=== PATIENT | female | born 1965 | race Caucasian/White ===

== ENCOUNTER 2018-06-10 16:11 | Inpatient (IN) | payer BC, OTHER ==
--- NOTE | 2018-06-10 16:21 | PDOC ---
Rapid Medical Evaluation Time Seen by Provider: 06/10/18 16:20 Medical Evaluation: Allergies Allergy/AdvReac Type Severity Reaction Status Date / Time No Known Allergies Allergy Verified 04/08/15 18:54 06/10/18 16:20 I have performed a brief in-person evaluation of this patient. The patient presents with a chief complaint of: Body pain w/ malaise and subj fever x 3 days. H/o HTN Pertinent physical exam findings:Febrile and gabriel uncomfortable I have ordered the following:tylenol, flu The patient will proceed to the ED for further evaluation. Discharge Disposition - Diagnosis Viral syndrome - Referrals - Patient Instructions - Post Discharge Activity
[2018-06-10] MEDS ORDERED: ACETAMINOPHEN 325 MG TABLET (FP) PO ONE (16:23)
[2018-06-10 17:03] LABS: BASO % 0.3 % (0-2.0); HEMOGLOBIN 12.1 GM/dL (10.7-15.3); LYMPH % 3.8 % (8-40); MCH 26.4 pg (25.7-33.7); MCHC 33.7 g/dl (32.0-36.0); MEAN CELL VOLUME 78.3 fl (80-96); MONO % 5.2 % (3.8-10.2); NEUT % 90.7 % (42.8-82.8); PLATELET COUNT 239 K/MM3 (134-434); RBC 4.59 M/mm3 (3.60-5.2); RDW 13.9 % (11.6-15.6); WHITE BLOOD COUNT 17.4 K/mm3 (4.0-10.0)
[2018-06-10 17:33] LABS: ALK PHOS 202 U/L (45-117); ANION GAP 12 MMOL/L (8-16); BILIRUBIN,TOTAL 1.1 mg/dL (0.2-1.0); BLOOD UREA NITROGEN 7 mg/dL (7-18); CALCIUM 8.6 mg/dL (8.5-10.1); CHLORIDE 102 mmol/L (98-107); CO2 24 mmol/L (21-32); GLUCOSE,RANDOM 126 mg/dL (74-106); POTASSIUM 3.5 mmol/L (3.5-5.1); SGOT/AST 93 U/L (15-37); SGPT/ALT 91 U/L (13-61); SODIUM 138 mmol/L (136-145); TOT PROT 6.8 g/dl (6.4-8.2)
[2018-06-10 17:56] LABS: URINE APPEARANCE SLCLOUDY; URINE BILIRUBIN NEGATIVE (<2.0 mg/dL); URINE COLOR LTYELLOW; URINE GLUCOSE (UA) NEGATIVE (NEGATIVE); URINE KETONE NEGATIVE (NEGATIVE); URINE NITRITE NEGATIVE (NEGATIVE); URINE PROTEIN NEGATIVE (NEGATIVE); URINE UROBILINOGEN NEGATIVE mg/dL (0.2-1.0)
[2018-06-10 17:57] LABS: URINE LEUK ESTERASE 3+ (NEGATIVE)
[2018-06-10 18:08] LABS: EPI CELLS RARE /HPF (FEW); URINE BACTERIA RARE /hpf (NONE SEEN)
[2018-06-10] MEDS ORDERED: SODIUM CHLORIDE 0.9% 1000 ML INFUS.BAG IV STA (18:16)
[2018-06-10] MEDS ORDERED: CEFTRIAXONE 1,000 MG in DEXTROSE 5%-WATER - 50 ML IVPB ONE (18:18)
--- NOTE | 2018-06-10 18:24 | PDOC ---
History of Present Illness - General History Source: Patient Exam Limitations: No Limitations - History of Present Illness Initial Comments: 06/10/18 18:20 Patient is a 52F with no significant medical history here today complaining of fever and dysuria for the past day. Patient reports associated left sided flank pain. Endorses nausea, denies vomiting. Endorses suprapubic abdominal pain. Denies chest pain, shortness of breath. Surgical history of . No prior admissions for UTIs. <Vahe Foster - Last Filed: 06/10/18 19:03> <Dotty Bardales - Last Filed: 06/10/18 19:17> - General Chief Complaint: SIRS, Suspected/Possible Stated Complaint: PAIN Time Seen by Provider: 06/10/18 16:20 Past History - Past Medical History COPD: No - Suicide/Smoking/Psychosocial Hx Smoking History: Never smoked Hx Alcohol Use: No Substance Use Type: None <Vahe Foster - Last Filed: 06/10/18 19:03> <Dotty Bardales - Last Filed: 06/10/18 19:17> - Past Medical History Allergies/Adverse Reactions: Allergies Allergy/AdvReac Type Severity Reaction Status Date / Time No Known Allergies Allergy Verified 06/10/18 16:26 Home Medications: Ambulatory Orders Acetaminophen/Caffeine/Butalb [Fioricet -] 1 tab PO Q6H #28 tablet 04/08/15 Review of Systems - Review of Systems Comments:: 06/10/18 18:21 GENERAL/CONSTITUTIONAL:+fever +chills. No weakness. HEAD, EYES, EARS, NOSE AND THROAT: No change in vision. No sore throat. CARDIOVASCULAR: No chest pain or shortness of breath RESPIRATORY: No cough, wheezing, or hemoptysis. GASTROINTESTINAL: No nausea, vomiting, diarrhea or constipation. GENITOURINARY: +dysuria, +frequency MUSCULOSKELETAL: No joint or muscle swelling or pain. No neck pain, +flank pain SKIN: No rash NEUROLOGIC: No headache, vertigo, loss of consciousness, or change in strength/ sensation. ENDOCRINE: No increased thirst. No abnormal weight change HEMATOLOGIC/LYMPHATIC: No anemia, easy bleeding, or history of blood clots. ALLERGIC/IMMUNOLOGIC: No hives or skin allergy. <Vahe Foster - Last Filed: 06/10/18 19:03> *Physical Exam - Vital Signs Last Vital Signs Temp Pulse Resp BP Pulse Ox 101.1 F H 122 H 20 125/69 99 06/10/18 16:26 06/10/18 16:26 06/10/18 16:26 06/10/18 16:26 06/10/18 16:26 - Physical Exam Comments: 06/10/18 18:22 GENERAL: Awake, alert, and fully oriented, in no acute distress HEAD: No signs of trauma, normocephalic, atraumatic EYES: PERRLA, EOMI, sclera anicteric, conjunctiva clear ENT: Auricles normal inspection, hearing grossly normal, nares patent, oropharynx clear without exudates. Moist mucosa NECK: Normal ROM, supple, no lymphadenopathy, JVD, or masses LUNGS: No distress, speaks full sentences, clear to auscultation bilaterally HEART: Regular rate and rhythm, normal S1 and S2, no murmurs, rubs or gallops, peripheral pulses normal and equal bilaterally. ABDOMEN: Soft, +suprapubic pain, +cva left sided tenderness, normoactive bowel sounds. No guarding, no rebound. No masses EXTREMITIES: Normal inspection, Normal range of motion, no edema. No clubbing or cyanosis. NEUROLOGICAL: Cranial nerves II through XII grossly intact. Normal speech, no focal sensorimotor deficits SKIN: Warm, Dry, normal turgor, no rashes or lesions noted. <Vahe Foster - Last Filed: 06/10/18 19:03> - Vital Signs Last Vital Signs Temp Pulse Resp BP Pulse Ox 101.1 F H 122 H 20 125/69 99 06/10/18 16:26 06/10/18 16:26 06/10/18 16:26 06/10/18 16:26 06/10/18 16:26 <Dotty Bardales - Last Filed: 06/10/18 19:17> ED Treatment Course - LABORATORY CBC & Chemistry Diagram: 06/10/18 16:44 06/10/18 16:44 - ADDITIONAL ORDERS Additional order review: Laboratory Results 06/10/18 06/10/18 06/10/18 16:44 16:44 16:40 Sodium 138 Potassium 3.5 Chloride 102 Carbon Dioxide 24 Anion Gap 12 BUN 7 Creatinine 1.0 Random Glucose 126 H Lactic Acid 1.2 Calcium 8.6 Total Bilirubin 1.1 H AST 93 H ALT 91 H Alkaline Phosphatase 202 H Total Protein 6.8 Albumin 3.0 L Urine Color Ltyellow Urine Appearance Slcloudy Urine pH 6.0 Ur Specific [place] 1.002 Urine Protein Negative Urine Glucose (UA) Negative Urine Ketones Negative Urine Blood 2+ H Urine Nitrite Negative Urine Bilirubin Negative Urine Urobilinogen Negative Ur Leukocyte Esterase 3+ H Urine WBC (Auto) 138 Urine RBC (Auto) 1 Ur Epithelial Cells Rare Urine Bacteria Rare 06/10/18 16:25 Influenza Types A,B Antigen - Final Nasopharyngeal Swab - Final 06/10/18 16:44 RBC 4.59 MCV 78.3 L MCHC 33.7 RDW 13.9 D MPV 8.0 Neutrophils % 90.7 H Lymphocytes % 3.8 L D Monocytes % 5.2 Eosinophils % 0.0 D Basophils % 0.3 - Medications Given in the ED: ED Medications Discontinued Medications Generic Name Dose Route Start Last Admin Trade Name Freq PRN Reason Stop Dose Admin Acetaminophen 650 mg 06/10/18 16:23 06/10/18 16:31 Tylenol - PO 06/10/18 16:24 650 mg ONCE ONE Administration <Vahe Foster - Last Filed: 06/10/18 19:03> - LABORATORY CBC & Chemistry Diagram: 06/10/18 16:44 06/10/18 16:44 - ADDITIONAL ORDERS Additional order review: Laboratory Results 06/10/18 06/10/18 06/10/18 16:44 16:44 16:40 Sodium 138 Potassium 3.5 Chloride 102 Carbon Dioxide 24 Anion Gap 12 BUN 7 Creatinine 1.0 Creat Clearance w eGFR 58.45 Random Glucose 126 H Lactic Acid 1.2 Calcium 8.6 Total Bilirubin 1.1 H AST 93 H ALT 91 H Alkaline Phosphatase 202 H Total Protein 6.8 Albumin 3.0 L Urine Color Ltyellow Urine Appearance Slcloudy Urine pH 6.0 Ur Specific [place] 1.002 Urine Protein Negative Urine Glucose (UA) Negative Urine Ketones Negative Urine Blood 2+ H Urine Nitrite Negative Urine Bilirubin Negative Urine Urobilinogen Negative Ur Leukocyte Esterase 3+ H Urine WBC (Auto) 138 Urine RBC (Auto) 1 Ur Epithelial Cells Rare Urine Bacteria Rare 06/10/18 16:25 Influenza Types A,B Antigen - Final Nasopharyngeal Swab - Final 06/10/18 16:44 RBC 4.59 MCV 78.3 L MCHC 33.7 RDW 13.9 D MPV 8.0 Neutrophils % 90.7 H Lymphocytes % 3.8 L D Monocytes % 5.2 Eosinophils % 0.0 D Basophils % 0.3 - Medications Given in the ED: ED Medications Discontinued Medications Generic Name Dose Route Start Last Admin Trade Name Puja PRN Reason Stop Dose Admin Acetaminophen 650 mg 06/10/18 16:23 06/10/18 16:31 Tylenol - PO 06/10/18 16:24 650 mg ONCE ONE Administration <Dotty Bardales - Last Filed: 06/10/18 19:17> Medical Decision Making - Medical Decision Making 06/10/18 18:23 Patient is 52F with no significant medical history here today with pyelonephritis. Labs drawn in triage show UTI with leukocytosis. Lactate negative. Started on ceftriaxone. Given 30cc/kg bolus. CXR clear. Hospitalist paged. 06/10/18 19:[address] Lamar Ford. <Vahe Foster - Last Filed: 06/10/18 19:03> *DC/Admit/Observation/Transfer - Discharge Dispostion Decision to Admit order: Yes <Vahe Foster - Last Filed: 06/10/18 19:03> - Discharge Dispostion Decision to Admit order: Yes Decision to Admit order Date/Time: 06/10/18 19:15 Decision to Admit Order Category Date Time Status Decision to Admit to Hospital Routine Admission 06/10/18 19:16 Ordered 06/10/18 19:17 <Dotty Bardales - Last Filed: 06/10/18 19:17> Diagnosis at time of Disposition: Sepsis, Pyelonephritis - Discharge Dispostion Condition at time of disposition: Guarded
[2018-06-10] MEDS ORDERED: IBUPROFEN 600 MG TABLET (FP) PO ONE ×2 (18:42→19:42)
--- NOTE | 2018-06-10 18:44 | PDOC ---
Attending Attestation - Resident Resident Name: Vahe Foster - ED Attending Attestation I have performed the following: I have examined & evaluated the patient, The case was reviewed & discussed with the resident, I agree w/resident's findings & plan - HPI HPI: 06/10/18 18:55 52 YOF, with no significant past medical history, who presents to the emergency department with, 1 day of fever and dysuria. The patient also endorses suprapubic pain radiating to the bilateral flank and nausea without emesis. She denies recent diarrhea or constipation. She denies recent frequency, urgency or hematuria. She denies recent chest pain or shortness of breath. Allergies: NKA Past surgical history: . - Physicial Exam PE: 06/10/18 18:55 uncomfortably /malaised appearing, MMM, nl conjunctiva, anicteric; neck supple. lungs clear, +tachy. abdomen soft. Suprapubic tenderness. Bilateral flank tenderness. WANG x4, no focal neuro deficits. No peripheral edema. normal color for ethnicity, +Warm to touch. - Medical Decision Making 06/10/18 18:55 52 YOF with no medical history presenting with fever and dysuria worsening with flank pain x 1 day. vitals +tachycardia and fever DDx. pyelonephritis, UTI, sepsis, dehydration, electrolyte/metabolic derangements. labs and lytes remarkable for significant leukocytosis 17K, neutrophilic predominance. LFTs elevated mildly UA +UTI with copious WBCs, f/u urine cx. blood cx pending IVF, sepsis bolus, treat with ceftriaxone for UTI. antipyretics including nsaid/ tylenol for fever and pain control admit for acute pyelonephritis with clinical syndrome, admit to hospitalist service. 06/10/18 19:17
--- NOTE | 2018-06-10 19:08 | HP ---
CHIEF COMPLAINT: Fever HISTORY OF PRESENT ILLNESS: Patient is a 52 yo F with a PMHx of HTN, HLD, presented today because of fever and LUQ abdominal pain that started last night. Patient also feels burning when urinating, dysuria, and increased urinary frequency that started 1 week ago. She describes the LUQ pain and suprapubic abdominal pain as a constant, 10/10 pain. Patient also endorses nausea, but has not vomited. She has no history of kidney stones or UTI. Her LMP was 1 week ago. She says her periods are usually normal and last 8 days. She denies sob, blood in urine, chest pain, dizziness, diarrhea, edema, cough, weight changes. ER course was notable for: (1) WBC 17, Tachy 122, 101.1 Temp (2) U/A 3+ LE, 2+ blood. 138 wbc (3) Ceftriaxone Recent Travel: none PAST MEDICAL HISTORY: per hpi PAST SURGICAL HISTORY: tubal ligation 2001, 2001 Social History: Smoking: denies Alcohol:denies Drugs: denies Family History: Allergies No Known Allergies Allergy (Verified 06/10/18 16:26) HOME MEDICATIONS: Home Medications Medication Instructions Recorded Acetaminophen/Caffeine/Butalb 1 tab PO Q6H #28 tablet 04/08/15 [Fioricet -] REVIEW OF SYSTEMS CONSTITUTIONAL: fevers, chills, weakeness Absent: malaise, loss of appetite, weight change HEENT: Absent: rhinorrhea, nasal congestion, throat pain, throat swelling, difficulty swallowing, mouth swelling, ear pain, eye pain, visual changes CARDIOVASCULAR: Absent: chest pain, syncope, palpitations, irregular heart rate, lightheadedness , peripheral edema RESPIRATORY: Absent: cough, shortness of breath, dyspnea with exertion, orthopnea, wheezing, stridor, hemoptysis GASTROINTESTINAL: abdominal pain, nausea Absent: abdominal distension, vomiting, diarrhea, constipation, melena, hematochezia GENITOURINARY: dysuria, frequency, flank pain Absent: hesitancy, hematuria, genital pain MUSCULOSKELETAL: back pain Absent: myalgia, arthralgia, joint swelling, neck pain ENDOCRINE: Absent: unexplained weight gain, unexplained weight loss, heat intolerance, cold intolerance NEUROLOGIC: Absent: headache, focal weakness or paresthesias, dizziness, unsteady gait, seizure, mental status changes, bladder or bowel incontinence PHYSICAL EXAMINATION Vital Signs - 24 hr 06/10/18 16:26 Temperature 101.1 F H Pulse Rate 122 H Respiratory 20 Rate Blood Pressure 125/69 O2 Sat by Pulse 99 Oximetry (%) GENERAL: in mild distress HEAD: Normal with no signs of trauma. EYES: Pupils equal, round and reactive to light, extraocular movements intact EARS, NOSE, THROAT: oropharynx clear without exudates. Moist mucous membranes. NECK: supple without lymphadenopathy, JVD, or masses. LUNGS: Breath sounds equal, clear to auscultation bilaterally. HEART: tachy, regular rhythm ABDOMEN:+ BS, LUQ tenderness to palpation, suprapubic tenderness, L CVA tenderness MUSCULOSKELETAL: Normal range of motion at all joints. No bony deformities or tenderness. UPPER EXTREMITIES: 2+ pulses, warm LOWER EXTREMITIES: 2+ pulses. No peripheral edema. NEUROLOGICAL: Cranial nerves II-XII intact. Normal speech. Laboratory Results - last 24 hr 06/10/18 06/10/18 06/10/18 16:40 16:44 16:44 WBC 17.4 H RBC 4.59 Hgb 12.1 Hct 36.0 MCV 78.3 L MCH 26.4 MCHC 33.7 RDW 13.9 D Plt Count 239 MPV 8.0 Absolute Neuts (auto) 15.8 H Neutrophils % 90.7 H Lymphocytes % 3.8 L D Monocytes % 5.2 Eosinophils % 0.0 D Basophils % 0.3 Nucleated RBC % 0 Sodium 138 Potassium 3.5 Chloride 102 Carbon Dioxide 24 Anion Gap 12 BUN 7 Creatinine 1.0 Creat Clearance w eGFR 58.45 Random Glucose 126 H Lactic Acid Calcium 8.6 Total Bilirubin 1.1 H AST 93 H ALT 91 H Alkaline Phosphatase 202 H Total Protein 6.8 Albumin 3.0 L Urine Color Ltyellow Urine Appearance Slcloudy Urine pH 6.0 Ur Specific [place] 1.002 Urine Protein Negative Urine Glucose (UA) Negative Urine Ketones Negative Urine Blood 2+ H Urine Nitrite Negative Urine Bilirubin Negative Urine Urobilinogen Negative Ur Leukocyte Esterase 3+ H Urine WBC (Auto) 138 Urine RBC (Auto) 1 Ur Epithelial Cells Rare Urine Bacteria Rare 06/10/18 16:44 WBC RBC Hgb Hct MCV MCH MCHC RDW Plt Count MPV Absolute Neuts (auto) Neutrophils % Lymphocytes % Monocytes % Eosinophils % Basophils % Nucleated RBC % Sodium Potassium Chloride Carbon Dioxide Anion Gap BUN Creatinine Creat Clearance w eGFR Random Glucose Lactic Acid 1.2 Calcium Total Bilirubin AST ALT Alkaline Phosphatase Total Protein Albumin Urine Color Urine Appearance Urine pH Ur Specific [place] Urine Protein Urine Glucose (UA) Urine Ketones Urine Blood Urine Nitrite Urine Bilirubin Urine Urobilinogen Ur Leukocyte Esterase Urine WBC (Auto) Urine RBC (Auto) Ur Epithelial Cells Urine Bacteria ASSESSMENT/PLAN: 52 yo F with a PMHx of HTN, HLD, presented because of fever and LUQ abdominal pain. #Sepsis 2/2 to Pyelonephritis -WBC 17, Tachy 122, 101.1 Temp -ucx, bcx pending -U/A 3+ LE, 2+ blood. 138 wbc -IV abx: ceftriaxone -NS @ 100ml/hour -Cxr unremarkable -morphine 2mg q6h prn -tylenol 650mg q6h prn #HTN/HLD -cont. Enalopril 5mg -cont. Lipitor 10 #FEN -iv fluids ns @100 -monitor -sodium controlled #dvt -lovenox med-surge Visit type - Emergency Visit Emergency Visit: Yes ED Registration Date: 06/10/18 Care time: The patient presented to the Emergency Department on the above date and was hospitalized for further evaluation of their emergent condition. - New Patient This patient is new to me today: Yes Date on this admission: 06/15/18 - Critical Care Critical Care patient: No Hospitalist Screening - Colonoscopy Questionnaire Colonoscopy Questionnaire: Colonoscopy Questionnaire - Patient: 50 - 75 years old and never had a screening colonoscopy: Unknown History of colon or rectal polyps, or CA: Unknown History of IBD, Crohn's disease or UC: Unknown History of abdominal radiation therapy as a child: Unknown - Relative: 1 with colon or rectal CA, or polyps at age 60 or younger: Unknown Colon or rectal CA diagnosed at age 45 or younger: Unknown Multiple relatives with colon or rectal CA: Unknown - Outcome: Screening Result: Negative Screen
[2018-06-10] MEDS ORDERED: ACETAMINOPHEN 325 MG TABLET (FP) PO PRN (19:30)
[2018-06-10] MEDS ORDERED: ACETAMINOPHEN INJECTION 100 ML IVPB ONE (19:35)
[2018-06-10] MEDS ORDERED: CEFTRIAXONE 1 GM/50 ML BAG ONE (19:36)
--- NOTE | 2018-06-10 19:58 | PN ---
Teaching Attending Note Name of Resident: Lamar Ford ATTENDING PHYSICIAN STATEMENT I saw and evaluated the patient. I reviewed the resident's note and discussed the case with the resident. I agree with the resident's findings and plan as documented. SUBJECTIVE: Patient is a 52 year old woman with a PMH of HTN, HLD, who presented today because of fever and LUQ abdominal pain that started last night. Patient also feels burning when urinating, dysuria, and increased urinary frequency that started 1 week ago. She describes the LUQ pain and suprapubic abdominal pain as a constant, 10/10 pain. Patient also endorses nausea, but has not vomited. She has no history of kidney stones or UTI. Her LMP was 1 week ago. She says her periods are usually normal and last 8 days. She denies sob, blood in urine, or diarrhea. OBJECTIVE: Alert Vital Signs Period Temp Pulse Resp BP Sys/Ryan Pulse Ox Last 24 Hr 101.1 F 122 20 125/69 99 HEENT: No Jaundice, eye redness or discharge, PERRLA, EOMI. Normocephalic, atraumatic. External ears are normal and hearing is grossly intact. No nasal discharge. Neck: Supple, nontender. No palpable adenopathy or thyromegaly. No JVD Chest: Good effort. Clear to auscultation and percussion. Heart: Regular. No S3, rub or murmur Abdomen: Not distended, soft, suprapubic tenderness and left CVAT; no HSM. No rebound or guarding. Normoactive bowel sounds. Ext: Peripheral pulses intact. No leg edema. Skin: Warm and dry. No petechiae, rash or ecchymosis. Neuro: Alert. Oriented x3. CN 2-12 grossly intact. Sensation grossly intact in all four extremities and DTR are symmetric. Current Medications Generic Name Dose Route Start Last Admin Trade Name Freq PRN Reason Stop Dose Admin Acetaminophen 650 mg 06/10/18 19:30 Tylenol - PO Q6H PRN FEVER Enoxaparin Sodium 40 mg 06/11/18 10:00 Lovenox - SQ DAILY CONCHA Sodium Chloride 1,000 mls @ 100 mls/hr 06/10/18 19:15 Normal Saline - IV ASDIR CONCHA Ceftriaxone Sodium 1 gm/ 50 mls @ 100 mls/hr 06/11/18 10:00 Dextrose IVPB DAILY [facility] Morphine Sulfate 2 mg 06/10/18 19:04 Morphine Sulfate IVPUSH Q6H PRN PAIN LEVEL 6-10 Home Medications Medication Instructions Recorded Acetaminophen/Caffeine/Butalb 1 tab PO Q6H #28 tablet 04/08/15 [Fioricet -] Abnormal Lab Results 06/10/18 06/10/18 06/10/18 16:40 16:44 16:44 WBC 17.4 H MCV 78.3 L Absolute Neuts (auto) 15.8 H Neutrophils % 90.7 H Lymphocytes % 3.8 L D Random Glucose 126 H Total Bilirubin 1.1 H AST 93 H ALT 91 H Alkaline Phosphatase 202 H Albumin 3.0 L Urine Blood 2+ H Ur Leukocyte Esterase 3+ H ASSESSMENT AND PLAN: 1. Sepsis due to pyelonephritis - Continue Rocephin 1 gm IV q 24 hours and IV NS. IV morphine for pain control. 2. DVT prophylaxis - Lovenox 40 mg SQ q 24 hours. 3. Advance directives - Full code
[2018-06-10 20:38] LABS: VENOUS PH 7.43 (7.32-7.42)
[2018-06-10 20:39] LABS: VENOUS PC02 36.7 mmHg (38-52)
[2018-06-10] MEDS ORDERED: ENALAPRIL MALEATE 5 MG TABLET (FP) ONE (21:52)
[2018-06-10] MEDS ORDERED: ATORVASTATIN CA 10 MG TABLET (FP) ONE (21:52)
[2018-06-10] MEDS ORDERED: ATORVASTATIN CA 10 MG TABLET (FP) PO SCH (22:00)
[2018-06-10] MEDS: ENALAPRIL MALEATE 5 MG TABLET (FP) PO SCH (22:04)
[2018-06-10] MEDS: SODIUM CHLORIDE 1,000 ML IV SCH (22:35)
[2018-06-11] MEDS: MORPHINE SULFATE 2 MG/ML VIAL IVPUSH PRN ×2 (04:54→11:58)
[2018-06-11] MEDS ORDERED: ONDANSETRON 4 MG/2 ML VIAL IVPUSH ONE (06:31)
[2018-06-11 07:09] LABS: HEMATOCRIT 35.5 % (32.4-45.2); HEMOGLOBIN 11.6 GM/dL (10.7-15.3); MCH 26.1 pg (25.7-33.7); MCHC 32.8 g/dl (32.0-36.0); MEAN CELL VOLUME 79.6 fl (80-96); MEAN PLT VOLUME 8.5 fl (7.5-11.1); PLATELET COUNT 196 K/MM3 (134-434); RBC 4.46 M/mm3 (3.60-5.2); RDW 14.2 % (11.6-15.6); WHITE BLOOD COUNT 17.3 K/mm3 (4.0-10.0)
[2018-06-11 08:18] LABS: ALBUMIN 2.5 g/dl (3.4-5.0); ALK PHOS 199 U/L (45-117); ANION GAP 11 MMOL/L (8-16); BILIRUBIN,TOTAL 1.2 mg/dL (0.2-1.0); BLOOD UREA NITROGEN 9 mg/dL (7-18); CALCIUM 8.1 mg/dL (8.5-10.1); CHLORIDE 108 mmol/L (98-107); CO2 24 mmol/L (21-32); CREATININE 0.8 mg/dL (0.55-1.3); GLUCOSE,RANDOM 123 mg/dL (74-106); MAGNESIUM 1.9 mg/dL (1.8-2.4); PHOSPHOROUS 2.8 mg/dL (2.5-4.9); POTASSIUM 4.3 mmol/L (3.5-5.1); SGOT/AST 74 U/L (15-37); SGPT/ALT 77 U/L (13-61); SODIUM 143 mmol/L (136-145)
--- NOTE | 2018-06-11 09:01 | PN ---
Physical Exam: SUBJECTIVE: Patient seen and examined Patient is c/o having upper abdominal pain. feels nausea with vomiting. Gabonese speaking patient. OBJECTIVE: Vital Signs Temperature 98.4 F 06/11/18 06:00 Pulse Rate 91 H 06/11/18 06:00 Respiratory Rate 16 06/11/18 06:00 Blood Pressure 132/82 06/11/18 06:00 O2 Sat by Pulse Oximetry (%) 97 06/11/18 00:45 GENERAL: The patient is awake, alert, and fully oriented, in mild distress. HEAD: Normal with no signs of trauma. EYES: PERRL, extraocular movements intact, sclera anicteric, conjunctiva clear. ENT: Ears normal, oropharynx clear without exudates, moist mucous membranes. NECK: Trachea midline, full range of motion, supple. LUNGS: Breath sounds equal, clear to auscultation bilaterally, no wheezes, no crackles, no accessory muscle use. HEART: Regular rate and rhythm, S1, S2 without murmur, rub or gallop. ABDOMEN: Soft, RUQ positive for Noe's sign with mild abdominal tenderness. no rebound, no hepatosplenomegaly, no masses. EXTREMITIES: 2+ pulses, warm, well-perfused, no edema. NEUROLOGICAL: Cranial nerves II through XII grossly intact. Normal speech, gait not observed. PSYCH: Normal mood, normal affect. SKIN: Warm, dry, normal turgor, no rashes or lesions noted CBCD WBC 17.3 K/mm3 (4.0-10.0) H 06/11/18 06:10 RBC 4.46 M/mm3 (3.60-5.2) 06/11/18 06:10 Hgb 11.6 GM/dL (10.7-15.3) 06/11/18 06:10 Hct 35.5 % (32.4-45.2) 06/11/18 06:10 MCV 79.6 fl (80-96) L 06/11/18 06:10 MCHC 32.8 g/dl (32.0-36.0) 06/11/18 06:10 RDW 14.2 % (11.6-15.6) 06/11/18 06:10 Plt Count 196 K/MM3 (134-434) 06/11/18 06:10 MPV 8.5 fl (7.5-11.1) 06/11/18 06:10 CMP Sodium 143 mmol/L (136-145) 06/11/18 06:10 Potassium 4.3 mmol/L (3.5-5.1) 06/11/18 06:10 Chloride 108 mmol/L (98-107) H 06/11/18 06:10 Carbon Dioxide 24 mmol/L (21-32) 06/11/18 06:10 Anion Gap 11 MMOL/L (8-16) 06/11/18 06:10 BUN 9 mg/dL (7-18) 06/11/18 06:10 Creatinine 0.8 mg/dL (0.55-1.3) 06/11/18 06:10 Creat Clearance w eGFR > 60 (>60) 06/11/18 06:10 Random Glucose 123 mg/dL (74-106) H 06/11/18 06:10 Calcium 8.1 mg/dL (8.5-10.1) L 06/11/18 06:10 Total Bilirubin 1.2 mg/dL (0.2-1.0) H 06/11/18 06:10 AST 74 U/L (15-37) H 06/11/18 06:10 ALT 77 U/L (13-61) H 06/11/18 06:10 Alkaline Phosphatase 199 U/L (45-117) H 06/11/18 06:10 Total Protein 6.0 g/dl (6.4-8.2) L 06/11/18 06:10 Albumin 2.5 g/dl (3.4-5.0) L 06/11/18 06:10 Current Medications Generic Name Dose Route Start Last Admin Trade Name Freq PRN Reason Stop Dose Admin Acetaminophen 650 mg 06/10/18 19:30 Tylenol - PO Q6H PRN FEVER Atorvastatin Calcium 10 mg 06/10/18 22:00 06/10/18 22:04 Lipitor - PO 10 mg HS CONCHA Administration Enalapril Maleate 5 mg 06/10/18 20:15 06/10/18 22:04 Vasotec - PO 5 mg DAILY CONCHA Administration Enoxaparin Sodium 40 mg 06/11/18 10:00 Lovenox - SQ DAILY [facility] Sodium Chloride 1,000 mls @ 100 mls/hr 06/10/18 19:15 06/10/18 22:35 Normal Saline - IV 100 mls/hr ASDIR CONCHA Administration Ceftriaxone Sodium 1 gm/ 50 mls @ 100 mls/hr 06/11/18 10:00 Dextrose IVPB DAILY [facility] Morphine Sulfate 2 mg 06/10/18 19:04 06/11/18 04:54 Morphine Sulfate IVPUSH 2 mg Q6H PRN Administration PAIN LEVEL 6-10 Home Medications Medication Instructions Recorded Enalapril Maleate 5 mg PO HS 06/10/18 Simvastatin [Zocor] 10 mg PO HS 06/10/18 A/P: 52 yo F with a PMHx of HTN, HLD, presented because of fever and RUQ and LUQ abdominal pain . # Sepsis due to possible cholecystitis/choledecolithiasis , will switch antibiotics to IV Flagyl/Levaquin, Discussed with surgeon will see the patient in am # ELevated LFTs will monitor trend the level # Acute UTI antibiotic on board Levquin Dvt:lovenox advance directives - Full code Visit type - Emergency Visit Emergency Visit: Yes ED Registration Date: 06/10/18 Care time: The patient presented to the Emergency Department on the above date and was hospitalized for further evaluation of their emergent condition. - New Patient This patient is new to me today: Yes Date on this admission: 06/11/18 - Critical Care Critical Care patient: Yes Total Critical Care Time (in minutes): 35 Critical Care Statement: The care of this patient involved high complexity decision making to prevent further life threatening deterioration of the patient 's condition and/or to evaluate & treat vital organ system(s) failure or risk of failure. - Discharge Referral Referred to [facility] No
[2018-06-11] MEDS ORDERED: CEFTRIAXONE 1 GM in DEXTROSE 5%-WATER - 50 ML IVPB SCH (10:00)
[2018-06-11] MEDS ORDERED: DEXTROSE 5%-WATER - 50 ML IVPB ONE (10:21)
[2018-06-11] MEDS ORDERED: cefTRIAXone SODIUM 1 GM VIAL ONE (10:21)
[2018-06-11] MEDS: SODIUM CHLORIDE 1,000 ML IV SCH ×2 (10:24→21:11)
[2018-06-11] MEDS: ENOXAPARIN NA (PORCINE) 40 MG/0.4 ML DISP.SYRIN SQ SCH (10:24)
[2018-06-11] MEDS ORDERED: PT OWN MED DRAWER 7, Y5N ONE (11:56)
[2018-06-11] MEDS ORDERED: KETOROLAC TROMETHAMINE 15 MG/ML VIAL IVPUSH ONE (12:49)
[2018-06-11] MEDS ORDERED: IBUPROFEN 800 MG/8 ML IJ IVPB PRN (12:53)
--- NOTE | 2018-06-11 17:49 | CON.GI ---
Consult Consult Specialty:: GI Reason for Consultation:: elevated liver enzymes - History of Present Illness History of Present Illness: Chart reviewed. Events noted. Per initial intake on 06/10/18: HISTORY OF PRESENT ILLNESS: Patient is a 52 yo F with a PMHx of HTN, HLD, presented today because of fever and LUQ abdominal pain that started last night. Patient also feels burning when urinating, dysuria, and increased urinary frequency that started 1 week ago. She describes the LUQ pain and suprapubic abdominal pain as a constant , 10/10 pain. Patient also endorses nausea, but has not vomited. She has no history of kidney stones or UTI. Her LMP was 1 week ago. She says her periods are usually normal and last 8 days. She denies sob, blood in urine, chest pain, dizziness, diarrhea, edema, cough, weight changes. ER course was notable for: (1) WBC 17, Tachy 122, 101.1 Temp (2) U/A 3+ LE, 2+ blood. 138 wbc (3) Ceftriaxone Also noted to have very mild transaminitis and cholestasis. US liver - normal - History Source History Provided By: Patient, Medical Record, Caregiver - Past Medical History ...LMP: 05/21/18 ...: No - Alcohol/Substance Use Hx Alcohol Use: No - Smoking History Smoking history: Never smoked Home Medications - Allergies Allergies/Adverse Reactions: Allergies Allergy/AdvReac Type Severity Reaction Status Date / Time No Known Allergies Allergy Verified 06/10/18 16:26 - Home Medications Home Medications: Ambulatory Orders Enalapril Maleate 5 mg PO HS 06/10/18 Aspirin [ASA -] 81 mg PO DAILY 06/13/18 Nebivolol [Bystolic -] 5 mg PO DAILY 06/13/18 Lactobacillus Acidophilus [Bacid -] 1 each PO DAILY #30 capsule 06/14/18 Levofloxacin [Levaquin] 500 mg PO DAILY #6 tablet 06/14/18 Simvastatin [Zocor -] 20 mg PO HS 06/14/18 metroNIDAZOLE [Flagyl -] 500 mg PO TID #36 tablet 06/14/18 Family Disease History - Family Disease History Family History: Unremarkable Review of Systems Findings/Remarks: as per HPI, ED, H&P Physical Exam-GI Vital Signs: Vital Signs Temperature 99.3 F 06/11/18 14:09 Pulse Rate 105 H 06/11/18 14:09 Respiratory Rate 22 06/11/18 14:09 Blood Pressure 125/66 06/11/18 14:09 O2 Sat by Pulse Oximetry (%) 91 L 06/11/18 09:00 Constitutional: Yes: Well Nourished, Mild Distress Eyes: Yes: Conjunctiva Clear HENT: Yes: Atraumatic Neck: Yes: Supple Cardiovascular: Yes: Regular Rate and Rhythm Respiratory: Yes: Regular Gastrointestinal Inspection: No: Ascites, Distention ...Auscultate: Yes: Normoactive Bowel Sounds ...Palpate: Yes: Soft, Tenderness, Epigastium. No: Firm/Rigid, Guarding Neurological: Yes: Alert, Oriented Labs: CBC, BMP 06/11/18 06:10 06/11/18 06:10 Laboratory Last Values WBC 9.1 K/mm3 (4.0-10.0) 06/14/18 07:00 RBC 3.92 M/mm3 (3.60-5.2) 06/14/18 07:00 Hgb 10.3 GM/dL (10.7-15.3) L 06/14/18 07:00 Hct 30.6 % (32.4-45.2) L 06/14/18 07:00 MCV 78.1 fl (80-96) L 06/14/18 07:00 MCH 26.2 pg (25.7-33.7) 06/14/18 07:00 MCHC 33.6 g/dl (32.0-36.0) 06/14/18 07:00 RDW 14.8 % (11.6-15.6) 06/14/18 07:00 Plt Count 223 K/MM3 (134-434) 06/14/18 07:00 MPV 8.2 fl (7.5-11.1) 06/14/18 07:00 Absolute Neuts (auto) 10.0 K/mm3 (1.5-8.0) H 06/13/18 06:20 Neutrophils % 86.3 % (42.8-82.8) H 06/13/18 06:20 Lymphocytes % 7.5 % (8-40) L D 06/13/18 06:20 Monocytes % 5.7 % (3.8-10.2) 06/13/18 06:20 Eosinophils % 0.2 % (0-4.5) 06/13/18 06:20 Basophils % 0.3 % (0-2.0) 06/13/18 06:20 Nucleated RBC % 0 % (0-0) 06/13/18 06:20 VBG pH 7.43 (7.32-7.42) H 06/10/18 19:40 POC VBG pCO2 36.7 mmHg (38-52) L 06/10/18 19:40 POC VBG pO2 123.0 mmHg (28-48) H 06/10/18 19:40 Mixed VBG HCO3 23.7 meq/L (19-25) 06/10/18 19:40 Sodium 143 mmol/L (136-145) 06/14/18 07:00 Potassium 3.0 mmol/L (3.5-5.1) L 06/14/18 07:00 Chloride 110 mmol/L (98-107) H 06/14/18 07:00 Carbon Dioxide 26 mmol/L (21-32) 06/14/18 07:00 Anion Gap 7 MMOL/L (8-16) L 06/14/18 07:00 BUN 5 mg/dL (7-18) L 06/14/18 07:00 Creatinine 0.6 mg/dL (0.55-1.3) 06/14/18 07:00 Creat Clearance w eGFR > 60 (>60) 06/14/18 07:00 Random Glucose 123 mg/dL (74-106) H 06/14/18 07:00 Lactic Acid 1.2 mmol/L (0.4-2.0) 06/10/18 16:44 Calcium 7.3 mg/dL (8.5-10.1) L 06/14/18 07:00 Phosphorus 2.2 mg/dL (2.5-4.9) L 06/14/18 07:00 Magnesium 1.8 mg/dL (1.8-2.4) 06/14/18 07:00 Total Bilirubin 0.5 mg/dL (0.2-1) 06/14/18 07:00 Direct Bilirubin 0.3 mg/dL (0.0-0.2) H 06/13/18 06:20 AST 27 U/L (15-37) 06/14/18 07:00 ALT 39 U/L (13-61) 06/14/18 07:00 Alkaline Phosphatase 150 U/L (45-117) H 06/14/18 07:00 Troponin I < 0.02 ng/ml (0.00-0.05) 06/13/18 09:12 Total Protein 4.9 g/dl (6.4-8.2) L 06/14/18 07:00 Albumin 1.9 g/dl (3.4-5.0) L 06/14/18 07:00 Lipase Cancelled 06/12/18 06:25 Urine Color Ltyellow 06/10/18 16:40 Urine Appearance Slcloudy 06/10/18 16:40 Urine pH 6.0 (5.0-8.0) 06/10/18 16:40 Ur Specific [place] 1.002 (1.001-1.035) 06/10/18 16:40 Urine Protein Negative (NEGATIVE) 06/10/18 16:40 Urine Glucose (UA) Negative (NEGATIVE) 06/10/18 16:40 Urine Ketones Negative (NEGATIVE) 06/10/18 16:40 Urine Blood 2+ (NEGATIVE) H 06/10/18 16:40 Urine Nitrite Negative (NEGATIVE) 06/10/18 16:40 Urine Bilirubin Negative (<2.0 mg/dL) 06/10/18 16:40 Urine Urobilinogen Negative mg/dL (0.2-1.0) 06/10/18 16:40 Ur Leukocyte Esterase 3+ (NEGATIVE) H 06/10/18 16:40 Urine WBC (Auto) 138 /hpf (3-5) 06/10/18 16:40 Urine RBC (Auto) 1 /hpf (0-3) 06/10/18 16:40 Ur Epithelial Cells Rare /HPF (FEW) 06/10/18 16:40 Urine Bacteria Rare /hpf (NONE SEEN) 06/10/18 16:40 Imaging - Results Ultrasound: Report Reviewed Problem List - Problems (1) Cholestasis Code(s): K83.1 - OBSTRUCTION OF BILE DUCT (2) Transaminitis Code(s): R74.0 - NONSPEC ELEV OF LEVELS OF TRANSAMNS & LACTIC ACID DEHYDRGNSE (3) Pyelonephritis Code(s): N12 - TUBULO-INTERSTITIAL NEPHRITIS, NOT SPCF ACUTE OR CHRONIC Assessment/Plan A 52F with urosepsis and mildy elevated liver chemistry with minimal cholestasis , which, I suspect, is reactive to urosepsis. Agree with RUQ US to r/o cholecytitis and choledocolithiasis. Agree with Levaquin and flagyl (biliary / urinary). If liver enzymes do not improve with treatment of urosepsis, would obtain viral hepatitis panel, CINDA, AMA, ASMA, ALKM-1.
[2018-06-11] MEDS: ENALAPRIL MALEATE 5 MG TABLET (FP) PO SCH (18:19)
[2018-06-11 23:30] VITALS: BMI 25.3
[2018-06-12] MEDS: SODIUM CHLORIDE 1,000 ML IV SCH ×3 (04:10→15:40)
[2018-06-12] MEDS: MORPHINE SULFATE 2 MG/ML VIAL IVPUSH PRN (04:22)
[2018-06-12 07:06] LABS: BASO % 0.2 % (0-2.0); EOS % 0.3 % (0-4.5); HEMATOCRIT 32.5 % (32.4-45.2); HEMOGLOBIN 10.6 GM/dL (10.7-15.3); LYMPH % 4.9 % (8-40); MCH 25.9 pg (25.7-33.7); MCHC 32.5 g/dl (32.0-36.0); MEAN CELL VOLUME 79.7 fl (80-96); MEAN PLT VOLUME 8.8 fl (7.5-11.1); MONO % 4.4 % (3.8-10.2); NEUT % 90.2 % (42.8-82.8); PLATELET COUNT 194 K/MM3 (134-434); RBC 4.08 M/mm3 (3.60-5.2); RDW 14.4 % (11.6-15.6); WHITE BLOOD COUNT 13.9 K/mm3 (4.0-10.0)
[2018-06-12 07:16] LABS: ALBUMIN 2.2 g/dl (3.4-5.0); ALK PHOS 173 U/L (45-117); ANION GAP 7 MMOL/L (8-16); BILIRUBIN,TOTAL 0.5 mg/dL (0.2-1.0); BLOOD UREA NITROGEN 11 mg/dL (7-18); CHLORIDE 111 mmol/L (98-107); CO2 25 mmol/L (21-32); CREATININE 0.8 mg/dL (0.55-1.3); GLUCOSE,RANDOM 101 mg/dL (74-106); POTASSIUM 3.9 mmol/L (3.5-5.1); SGOT/AST 62 U/L (15-37); SGPT/ALT 76 U/L (13-61); SODIUM 143 mmol/L (136-145); TOT PROT 5.5 g/dl (6.4-8.2)
[2018-06-12] MEDS ORDERED: MORPHINE SULFATE 2 MG/ML VIAL IVPUSH PRN (09:27)
--- NOTE | 2018-06-12 09:27 | PN ---
Teaching Attending Note Name of Resident: Lamar Ford ATTENDING PHYSICIAN STATEMENT I saw and evaluated the patient. I reviewed the resident's note and discussed the case with the resident. I agree with the resident's findings and plan as documented. SUBJECTIVE: Patient is feeling better. c/o mid epigatric pain OBJECTIVE: Vital Signs Temperature 98.1 F 06/12/18 09:17 Pulse Rate 77 06/12/18 09:17 Respiratory Rate 20 06/12/18 09:17 Blood Pressure 152/81 06/12/18 09:17 O2 Sat by Pulse Oximetry (%) 99 06/11/18 21:00 CBCD WBC 13.9 K/mm3 (4.0-10.0) H 06/12/18 06:20 RBC 4.08 M/mm3 (3.60-5.2) 06/12/18 06:20 Hgb 10.6 GM/dL (10.7-15.3) L 06/12/18 06:20 Hct 32.5 % (32.4-45.2) 06/12/18 06:20 MCV 79.7 fl (80-96) L 06/12/18 06:20 MCHC 32.5 g/dl (32.0-36.0) 06/12/18 06:20 RDW 14.4 % (11.6-15.6) 06/12/18 06:20 Plt Count 194 K/MM3 (134-434) 06/12/18 06:20 MPV 8.8 fl (7.5-11.1) 06/12/18 06:20 CMP Sodium 143 mmol/L (136-145) 06/12/18 06:20 Potassium 3.9 mmol/L (3.5-5.1) 06/12/18 06:20 Chloride 111 mmol/L (98-107) H 06/12/18 06:20 Carbon Dioxide 25 mmol/L (21-32) 06/12/18 06:20 Anion Gap 7 MMOL/L (8-16) L 06/12/18 06:20 BUN 11 mg/dL (7-18) 06/12/18 06:20 Creatinine 0.8 mg/dL (0.55-1.3) 06/12/18 06:20 Creat Clearance w eGFR > 60 (>60) 09/16/18 06:20 Random Glucose 101 mg/dL (74-106) 06/12/18 06:20 Calcium 8.0 mg/dL (8.5-10.1) L 06/12/18 06:20 Total Bilirubin 0.5 mg/dL (0.2-1.0) 06/12/18 06:20 AST 62 U/L (15-37) H 06/12/18 06:20 ALT 76 U/L (13-61) H 06/12/18 06:20 Alkaline Phosphatase 173 U/L (45-117) H 06/12/18 06:20 Total Protein 5.5 g/dl (6.4-8.2) L 06/12/18 06:20 Albumin 2.2 g/dl (3.4-5.0) L 06/12/18 06:20 Current Medications Generic Name Dose Route Start Last Admin Trade Name Freq PRN Reason Stop Dose Admin Acetaminophen 650 mg 06/10/18 19:30 Tylenol - PO Q6H PRN FEVER Atorvastatin Calcium 10 mg 06/10/18 22:00 06/10/18 22:04 Lipitor - PO 10 mg HS CONCHA Administration Enalapril Maleate 5 mg 06/10/18 20:15 06/11/18 18:19 Vasotec - PO Not Given DAILY CONCHA Enoxaparin Sodium 40 mg 06/11/18 10:00 06/11/18 10:24 Lovenox - SQ 40 mg DAILY CONCHA Administration Metronidazole 500 mg in 100 mls @ 100 mls/hr 06/11/18 12:30 06/12/18 03:45 Flagyl 500mg Premixed Ivpb - IVPB 100 mls/hr Q6H-IV CONCHA Administration Sodium Chloride 1,000 mls @ 150 mls/hr 06/11/18 12:43 06/12/18 04:10 Normal Saline - IV 150 mls/hr ASDIR CONCHA Administration Levofloxacin 500 mg in 100 mls @ 100 mls/hr 06/12/18 10:00 Levaquin 500 Mg Premixed Ivpb - IVPB 06/12/18 10:59 DAILY ONE Protocol Ibuprofen 400 mg 06/11/18 12:53 06/11/18 14:18 Caldolor Injection - IVPB 06/12/18 12:52 400 mg Q6H PRN Administration FEVER Morphine Sulfate 2 mg 06/10/18 19:04 06/12/18 04:22 Morphine Sulfate IVPUSH 2 mg Q6H PRN Administration PAIN LEVEL 6-10 Home Medications Medication Instructions Recorded Enalapril Maleate 5 mg PO HS 06/10/18 Simvastatin [Zocor] 10 mg PO HS 06/10/18 PE: as per resident's note Midepigastric pain improving ASSESSMENT AND PLAN: 52 yo F with a PMHx of HTN, HLD, presented because of fever and RUQ and LUQ abdominal pain . # Sepsis due to possible cholecystitis/choledecolithiasis , continue with IV antibiotics to IV Flagyl/Levaquin, surgical consult appreciated GI consult appreciated possible MRCP . Lipase ordered, IVF , Morphine, and motrin IV x 2 day # ELevated LFTs trending down , will monitor # Acute UTI Levaquin IV Dvt:lovenox advance directives - Full code
[2018-06-12] MEDS ORDERED: IBUPROFEN 800 MG/8 ML IJ IVPB SCH (09:30)
--- NOTE | 2018-06-12 09:30 | PN ---
Physical Exam: SUBJECTIVE: Patient seen and examined. She offers no new complaints. She still endorses epigastric pain. She also says she was nauseas and vomited yesterday. She did not have any vomiting today. She denies chest pain, sob, dysuria, dizziness, diarrhea. OBJECTIVE: Vital Signs Period Temp Pulse Resp BP Sys/Ryan Pulse Ox Last 24 Hr 98.1 F-101.4 F 74-108 18-22 125-152/66-84 99 GENERAL: The patient is awake, alert, and fully oriented, in no acute distress. HEAD: Normal with no signs of trauma. EYES: PERRL, extraocular movements intact, sclera anicteric, conjunctiva clear. ENT: oropharynx clear without exudates, moist mucous membranes. NECK: supple. LUNGS: Breath sounds equal, clear to auscultation bilaterally HEART: Regular rate and rhythm, S1, S2 without murmur, rub or gallop. ABDOMEN: +BS, RUQ/LUQ tenderness to palpation. negative bennett sign. L+R CVA tenderness EXTREMITIES: 2+ pulses, warm, well-perfused, no edema. NEUROLOGICAL: Cranial nerves II through XII grossly intact. PSYCH: Normal mood, normal affect. Laboratory Results - last 24 hr 06/12/18 06/12/18 06/12/18 06:20 06:20 06:25 WBC 13.9 H RBC 4.08 Hgb 10.6 L Hct 32.5 MCV 79.7 L MCH 25.9 MCHC 32.5 RDW 14.4 Plt Count 194 MPV 8.8 Absolute Neuts (auto) 12.5 H Neutrophils % 90.2 H Lymphocytes % 4.9 L D Monocytes % 4.4 Eosinophils % 0.3 D Basophils % 0.2 Nucleated RBC % 0 Sodium 143 Potassium 3.9 Chloride 111 H Carbon Dioxide 25 Anion Gap 7 L BUN 11 Creatinine 0.8 Creat Clearance w eGFR > 60 Random Glucose 101 Calcium 8.0 L Total Bilirubin 0.5 AST 62 H ALT 76 H Alkaline Phosphatase 173 H Total Protein 5.5 L Albumin 2.2 L Lipase Cancelled Active Medications Generic Name Dose Route Start Last Admin Trade Name Freq PRN Reason Stop Dose Admin Atorvastatin Calcium 10 mg 06/10/18 22:00 06/10/18 22:04 Lipitor - PO 10 mg HS CONCHA Administration Enalapril Maleate 5 mg 06/10/18 20:15 06/11/18 18:19 Vasotec - PO Not Given DAILY CONCHA Enoxaparin Sodium 40 mg 06/11/18 10:00 06/11/18 10:24 Lovenox - SQ 40 mg DAILY CONCHA Administration Metronidazole 500 mg in 100 mls @ 100 mls/hr 06/11/18 12:30 06/12/18 03:45 Flagyl 500mg Premixed Ivpb - IVPB 100 mls/hr Q6H-IV CONCHA Administration Sodium Chloride 1,000 mls @ 150 mls/hr 06/11/18 12:43 06/12/18 04:10 Normal Saline - IV 150 mls/hr ASDIR CONCHA Administration Levofloxacin 500 mg in 100 mls @ 100 mls/hr 06/12/18 10:00 Levaquin 500 Mg Premixed Ivpb - IVPB 06/12/18 10:59 DAILY ONE Protocol Ibuprofen 400 mg 06/12/18 09:30 Caldolor Injection - IVPB 06/13/18 09:29 Q6H CONCHA Morphine Sulfate 2 mg 06/12/18 09:27 Morphine Sulfate IVPUSH Q4H PRN PAIN LEVEL 6-10 ASSESSMENT/PLAN: 52 yo F with a PMHx of HTN, HLD, presented because of fever and RUQ and LUQ abdominal pain . #Sepsis -questionable Choledocholithiasis vs Pyeloneprhitis -abdominal u/s unremarkable -leukocytosis trending down, afebrile -Ucx growing lactose ferm gram neg after 24 hours -Levaquin, Flagyl Abx day 3 -follow GI/Surgery reccs -motrin x 1 day, morphine q4h for pain control #Elevated LFTs -trending down -monitor -follow GI reccs #HTN/HLD -cont. Enalopril 5mg -Lipitor held due to LFTs #FEN -ns @ 150 -monitor -npo Dvt:lovenox Visit type - Emergency Visit Emergency Visit: Yes ED Registration Date: 06/10/18 Care time: The patient presented to the Emergency Department on the above date and was hospitalized for further evaluation of their emergent condition. - New Patient This patient is new to me today: No - Critical Care Critical Care patient: No
[2018-06-12 09:45] LABS: LIPASE 53 U/L (73-393)
[2018-06-12] MEDS ORDERED: PT OWN MED DRAWER 7, Y5N ONE (09:58)
[2018-06-12] MEDS: ENOXAPARIN NA (PORCINE) 40 MG/0.4 ML DISP.SYRIN SQ SCH (10:01)
[2018-06-12] MEDS: ENALAPRIL MALEATE 5 MG TABLET (FP) PO SCH ×2 (10:11→11:33)
[2018-06-12] MEDS ORDERED: ONDANSETRON 4 MG/2 ML VIAL IVPUSH PRN (10:13)
[2018-06-12] MEDS: IBUPROFEN 800 MG/8 ML IJ IVPB SCH ×3 (11:36→19:37)
--- NOTE | 2018-06-12 11:58 | CONSULT ---
- Consultation REQUESTING PROVIDER: Reg BUTLER CONSULT REQUEST: We have been asked to surgically evaluate this patient for ( specify). PCP:Carlos Finney HISTORY OF PRESENT ILLNESS: CTSP who is admitted w/ ? pyelonephritis ? to r/o biliary tract disease PMHx: HTN PSHx: C-S Home Medications Medication Instructions Recorded Enalapril Maleate 5 mg PO HS 06/10/18 Simvastatin [Zocor] 10 mg PO HS 06/10/18 Allergies Allergy/AdvReac Type Severity Reaction Status Date / Time No Known Allergies Allergy Verified 06/10/18 16:26 PHYSICAL EXAM: GENERAL: Awake, alert, and fully oriented, in no acute distress. HEAD: Normal with no signs of trauma. EYES: PERRL, sclera anicteric, conjunctiva clear. NECK: Normal ROM, supple without lymphadenopathy, JVD, or masses. LUNGS: Clear to auscultation bilat anteriorly. No wheezes, and no crackles. No accessory muscle use. HEART: Regular rate and rhythm. No murmurs ABDOMEN: Soft, nontender, not distended, normoactive bowel sounds, no guarding, no rebound, no masses. No organomegaly. MUSCULOSKELETAL: Normal ROM at all joints. No bony deformities or tenderness. No CVA tenderness. UPPER EXTREMITIES: 2+ pulses, warm, well-perfused. No cyanosis. Cap refill <2 seconds. No peripheral edema. LOWER EXTREMITIES: 2+ pulses, warm, well-perfused. No calf tenderness. No peripheral edema. NEUROLOGICAL: Normal speech, gait not observed. PSYCH: Cooperative. Good eye contact. Appropriate mood and affect. SKIN: Warm, dry, normal turgor, no rashes or lesions noted. Vital Signs Temperature 98.1 F 06/12/18 09:17 Pulse Rate 100 H 06/12/18 11:32 Respiratory Rate 20 06/12/18 11:32 Blood Pressure 149/90 06/12/18 11:32 O2 Sat by Pulse Oximetry (%) 99 06/11/18 21:00 Lab Results WBC 13.9 K/mm3 (4.0-10.0) H 06/12/18 06:20 RBC 4.08 M/mm3 (3.60-5.2) 06/12/18 06:20 Hgb 10.6 GM/dL (10.7-15.3) L 06/12/18 06:20 Hct 32.5 % (32.4-45.2) 06/12/18 06:20 MCV 79.7 fl (80-96) L 06/12/18 06:20 MCHC 32.5 g/dl (32.0-36.0) 06/12/18 06:20 RDW 14.4 % (11.6-15.6) 06/12/18 06:20 Plt Count 194 K/MM3 (134-434) 06/12/18 06:20 Sodium 143 mmol/L (136-145) 06/12/18 06:20 Potassium 3.9 mmol/L (3.5-5.1) 06/12/18 06:20 Chloride 111 mmol/L (98-107) H 06/12/18 06:20 Carbon Dioxide 25 mmol/L (21-32) 06/12/18 06:20 Anion Gap 7 MMOL/L (8-16) L 06/12/18 06:20 BUN 11 mg/dL (7-18) 06/12/18 06:20 Creatinine 0.8 mg/dL (0.55-1.3) 06/12/18 06:20 Random Glucose 101 mg/dL (74-106) 06/12/18 06:20 Calcium 8.0 mg/dL (8.5-10.1) L 06/12/18 06:20 IMP: no evidence of an acute surgical abdomen; specifically no evidence of cholelithiasis/acute cholecystitis PLAN: As per primary care team. Jake Parson MD FACS
--- NOTE | 2018-06-12 17:08 | PN ---
Progress Note, Physician History of Present Illness: WBC, liver chem., and bili improved. US - normal. Reports nausea and generalized abdominal pain - more pronounced in epigastrium and suprapubic regions. No rebound or guarding. - Current Medication List Current Medications: Active Medications Atorvastatin Calcium (Lipitor -) 10 mg PO HS [facility] Last Admin: 06/10/18 22:04 Dose: 10 mg Enalapril Maleate (Vasotec -) 5 mg PO DAILY [facility] Last Admin: 06/12/18 11:33 Dose: 5 mg Enoxaparin Sodium (Lovenox -) 40 mg SQ DAILY [facility] Last Admin: 06/12/18 10:01 Dose: 40 mg Metronidazole (Flagyl 500mg Premixed Ivpb -) 500 mg in 100 mls @ 100 mls/hr IVPB Q6H-IV [facility] Last Admin: 06/12/18 16:05 Dose: 100 mls/hr Sodium Chloride (Normal Saline -) 1,000 mls @ 150 mls/hr IV ASDIR [facility] Last Admin: 06/12/18 15:40 Dose: 150 mls/hr Ibuprofen (Caldolor Injection -) 400 mg IVPB Q6H [facility] Last Admin: 06/12/18 11:36 Dose: 400 mg Morphine Sulfate (Morphine Sulfate) 2 mg IVPUSH Q4H PRN PRN Reason: PAIN LEVEL 6-10 Last Admin: 06/12/18 10:00 Dose: 2 mg Ondansetron HCl (Zofran Injection) 4 mg IVPUSH Q6H PRN PRN Reason: NAUSEA AND/OR VOMITING Last Admin: 06/12/18 10:31 Dose: 4 mg - Objective Vital Signs: Vital Signs Temperature 98.8 F 06/12/18 14:22 Pulse Rate 89 06/12/18 14:22 Respiratory Rate 22 06/12/18 14:22 Blood Pressure 146/81 06/12/18 14:22 O2 Sat by Pulse Oximetry (%) 97 06/12/18 10:00 Constitutional: Yes: Well Nourished, No Distress, Calm Eyes: Yes: Conjunctiva Clear HENT: Yes: Atraumatic Neck: Yes: Supple Cardiovascular: Yes: Regular Rate and Rhythm Respiratory: Yes: Regular Gastrointestinal: Yes: Normal Bowel Sounds, Soft, Tenderness (epigastrum and suprapubic areas), Vomiting (one this am). No: Ascites, Distention, Hematemesis , Tenderness, Rebound Neurological: Yes: Alert, Oriented Labs: CBC, BMP 06/12/18 06:20 06/12/18 06:20 Laboratory Last Values WBC 13.9 K/mm3 (4.0-10.0) H 06/12/18 06:20 RBC 4.08 M/mm3 (3.60-5.2) 06/12/18 06:20 Hgb 10.6 GM/dL (10.7-15.3) L 06/12/18 06:20 Hct 32.5 % (32.4-45.2) 06/12/18 06:20 MCV 79.7 fl (80-96) L 06/12/18 06:20 MCH 25.9 pg (25.7-33.7) 06/12/18 06:20 MCHC 32.5 g/dl (32.0-36.0) 06/12/18 06:20 RDW 14.4 % (11.6-15.6) 06/12/18 06:20 Plt Count 194 K/MM3 (134-434) 06/12/18 06:20 MPV 8.8 fl (7.5-11.1) 06/12/18 06:20 Absolute Neuts (auto) 12.5 K/mm3 (1.5-8.0) H 06/12/18 06:20 Neutrophils % 90.2 % (42.8-82.8) H 06/12/18 06:20 Lymphocytes % 4.9 % (8-40) L D 06/12/18 06:20 Monocytes % 4.4 % (3.8-10.2) 06/12/18 06:20 Eosinophils % 0.3 % (0-4.5) D 06/12/18 06:20 Basophils % 0.2 % (0-2.0) 06/12/18 06:20 Nucleated RBC % 0 % (0-0) 06/12/18 06:20 VBG pH 7.43 (7.32-7.42) H 06/10/18 19:40 POC VBG pCO2 36.7 mmHg (38-52) L 06/10/18 19:40 POC VBG pO2 123.0 mmHg (28-48) H 06/10/18 19:40 Mixed VBG HCO3 23.7 meq/L (19-25) 06/10/18 19:40 Sodium 143 mmol/L (136-145) 06/12/18 06:20 Potassium 3.9 mmol/L (3.5-5.1) 06/12/18 06:20 Chloride 111 mmol/L (98-107) H 06/12/18 06:20 Carbon Dioxide 25 mmol/L (21-32) 06/12/18 06:20 Anion Gap 7 MMOL/L (8-16) L 06/12/18 06:20 BUN 11 mg/dL (7-18) 06/12/18 06:20 Creatinine 0.8 mg/dL (0.55-1.3) 06/12/18 06:20 Creat Clearance w eGFR > 60 (>60) 06/12/18 06:20 Random Glucose 101 mg/dL (74-106) 06/12/18 06:20 Lactic Acid 1.2 mmol/L (0.4-2.0) 06/10/18 16:44 Calcium 8.0 mg/dL (8.5-10.1) L 06/12/18 06:20 Phosphorus 2.8 mg/dL (2.5-4.9) 06/11/18 06:10 Magnesium 1.9 mg/dL (1.8-2.4) 06/11/18 06:10 Total Bilirubin 0.5 mg/dL (0.2-1.0) 06/12/18 06:20 AST 62 U/L (15-37) H 06/12/18 06:20 ALT 76 U/L (13-61) H 06/12/18 06:20 Alkaline Phosphatase 173 U/L (45-117) H 06/12/18 06:20 Total Protein 5.5 g/dl (6.4-8.2) L 06/12/18 06:20 Albumin 2.2 g/dl (3.4-5.0) L 06/12/18 06:20 Lipase Cancelled 06/12/18 06:25 Urine Color Ltyellow 06/10/18 16:40 Urine Appearance Slcloudy 06/10/18 16:40 Urine pH 6.0 (5.0-8.0) 06/10/18 16:40 Ur Specific [place] 1.002 (1.001-1.035) 06/10/18 16:40 Urine Protein Negative (NEGATIVE) 06/10/18 16:40 Urine Glucose (UA) Negative (NEGATIVE) 06/10/18 16:40 Urine Ketones Negative (NEGATIVE) 06/10/18 16:40 Urine Blood 2+ (NEGATIVE) H 06/10/18 16:40 Urine Nitrite Negative (NEGATIVE) 06/10/18 16:40 Urine Bilirubin Negative (<2.0 mg/dL) 06/10/18 16:40 Urine Urobilinogen Negative mg/dL (0.2-1.0) 06/10/18 16:40 Ur Leukocyte Esterase 3+ (NEGATIVE) H 06/10/18 16:40 Urine WBC (Auto) 138 /hpf (3-5) 06/10/18 16:40 Urine RBC (Auto) 1 /hpf (0-3) 06/10/18 16:40 Ur Epithelial Cells Rare /HPF (FEW) 06/10/18 16:40 Urine Bacteria Rare /hpf (NONE SEEN) 06/10/18 16:40 - ....Imaging Ultrasound: Report Reviewed Problem List - Problems (1) Cholestasis Code(s): K83.1 - OBSTRUCTION OF BILE DUCT (2) Transaminitis Code(s): R74.0 - NONSPEC ELEV OF LEVELS OF TRANSAMNS & LACTIC ACID DEHYDRGNSE (3) Pyelonephritis Code(s): N12 - TUBULO-INTERSTITIAL NEPHRITIS, NOT SPCF ACUTE OR CHRONIC Assessment/Plan A 52F with urosepsis and mildy elevated liver chemistry with minimal cholestasis , which, I suspect, is reactive to urosepsis. RUQ US normal. Labs improving. Still has symptoms. Continue Levaquin and flagyl If liver enzymes do not improve with treatment of urosepsis, would obtain viral hepatitis panel, CINDA, AMA, ASMA, ALKM-1. Trial of BRAT diet. PO hydration
--- NOTE | 2018-06-12 21:49 | EKG ---
Test Reason : Blood Pressure : / mmHG Vent. Rate : 101 BPM Atrial Rate : 101 BPM P-R Int : 122 ms QRS Dur : 072 ms QT Int : 348 ms P-R-T Axes : 079 027 012 degrees QTc Int : 451 ms SINUS TACHYCARDIA NONSPECIFIC ST AND T WAVE ABNORMALITY ABNORMAL ECG NO PREVIOUS ECGS AVAILABLE Confirmed by NORMA GAFFNEY MD ([id number]) on 06/12/2018 9:49:11 PM Referred By: Confirmed By:NORMA GAFFNEY MD
[2018-06-13] MEDS: IBUPROFEN 800 MG/8 ML IJ IVPB SCH ×6 (01:16→21:50)
[2018-06-13] MEDS: SODIUM CHLORIDE 1,000 ML IV SCH ×3 (01:48→14:06)
[2018-06-13] MEDS ORDERED: NITROGLYCERIN SUBLINGUAL 1/150 0.4 MG TAB SL ONE (03:30)
[2018-06-13 07:54] LABS: BASO % 0.3 % (0-2.0); EOS % 0.2 % (0-4.5); HEMATOCRIT 31.9 % (32.4-45.2); HEMOGLOBIN 10.4 GM/dL (10.7-15.3); LYMPH % 7.5 % (8-40); MCH 25.8 pg (25.7-33.7); MCHC 32.7 g/dl (32.0-36.0); MEAN CELL VOLUME 78.8 fl (80-96); MEAN PLT VOLUME 8.8 fl (7.5-11.1); MONO % 5.7 % (3.8-10.2); NEUT % 86.3 % (42.8-82.8); PLATELET COUNT 207 K/MM3 (134-434); RBC 4.05 M/mm3 (3.60-5.2); RDW 15.1 % (11.6-15.6); WHITE BLOOD COUNT 11.6 K/mm3 (4.0-10.0)
[2018-06-13 08:34] LABS: ALK PHOS 161 U/L (45-117); ANION GAP 10 MMOL/L (8-16); BILIRUBIN,TOTAL 0.6 mg/dL (0.2-1.0); BLOOD UREA NITROGEN 11 mg/dL (7-18); CALCIUM 7.8 mg/dL (8.5-10.1); CHLORIDE 110 mmol/L (98-107); CO2 23 mmol/L (21-32); CREATININE 0.7 mg/dL (0.55-1.3); GLUCOSE,RANDOM 104 mg/dL (74-106); POTASSIUM 3.3 mmol/L (3.5-5.1); SGOT/AST 36 U/L (15-37); SGPT/ALT 55 U/L (13-61); SODIUM 143 mmol/L (136-145); TOT PROT 5.3 g/dl (6.4-8.2)
[2018-06-13] MEDS ORDERED: PT OWN MED DRAWER 7, Y5N ONE (09:20)
[2018-06-13] MEDS: ENOXAPARIN NA (PORCINE) 40 MG/0.4 ML DISP.SYRIN SQ SCH (09:40)
[2018-06-13] MEDS: ENALAPRIL MALEATE 5 MG TABLET (FP) PO SCH (09:40)
--- NOTE | 2018-06-13 11:45 | PN ---
Physical Exam: SUBJECTIVE: Patient seen and examined at bedside this morning. Admits left upper quadrant abdominal pain that radiates to her back, and is somewhat relieved by sitting up. Admits vomiting yesterday afternoon and evening. Vomitus was clear, non bloody, non billious. Denies nausea this morning. Last bowel movement was last . Urinated last evening without dysuria, hematuria, frequency or hesitancy. OBJECTIVE: Vital Signs Period Temp Pulse Resp BP Sys/Ryan Pulse Ox Last 24 Hr 97.5 F-98.8 F 66-89 18-22 135-157/67-96 97 GENERAL: The patient is awake, alert, and fully oriented, in no acute distress. HEAD: Normal with no signs of trauma. EYES: PERRL, extraocular movements intact, sclera anicteric, conjunctiva clear. ENT: Oropharynx clear without exudates, moist mucous membranes. NECK: Trachea midline, full range of motion, supple without lymphadenopathy LUNGS: Breath sounds equal, clear to auscultation bilaterally, no wheezes, no crackles, no accessory muscle use. HEART: Regular rate and rhythm, S1, S2 without murmur, rub or gallop. ABDOMEN: Soft, nontender, nondistended, normoactive bowel sounds, no guarding, no rebound, no hepatosplenomegaly. CVA tenderness positive on left side. EXTREMITIES: 2+ pulses radial and dorsalis pedis B/L. Warm, well-perfused. No edema B/L lower extremities. NEUROLOGICAL: Cranial nerves II through XII grossly intact. Normal speech. No gross focal deficits. PSYCH: Appropriate mood and affect upon my encoutner today. SKIN: Warm, dry. No rashes or lesions noted Laboratory Results - last 24 hr 06/13/18 06/13/18 06/13/18 03:00 06:20 06:20 WBC 11.6 H RBC 4.05 Hgb 10.4 L Hct 31.9 L MCV 78.8 L MCH 25.8 MCHC 32.7 RDW 15.1 Plt Count 207 MPV 8.8 Absolute Neuts (auto) 10.0 H Neutrophils % 86.3 H Lymphocytes % 7.5 L D Monocytes % 5.7 Eosinophils % 0.2 Basophils % 0.3 Nucleated RBC % 0 Sodium 143 Potassium 3.3 L Chloride 110 H Carbon Dioxide 23 Anion Gap 10 BUN 11 Creatinine 0.7 Creat Clearance w eGFR > 60 Random Glucose 104 Calcium 7.8 L Total Bilirubin 0.6 Direct Bilirubin AST 36 ALT 55 Alkaline Phosphatase 161 H Troponin I < 0.02 Total Protein 5.3 L Albumin 2.0 L 06/13/18 06/13/18 06:20 09:12 WBC RBC Hgb Hct MCV MCH MCHC RDW Plt Count MPV Absolute Neuts (auto) Neutrophils % Lymphocytes % Monocytes % Eosinophils % Basophils % Nucleated RBC % Sodium Potassium Chloride Carbon Dioxide Anion Gap BUN Creatinine Creat Clearance w eGFR Random Glucose Calcium Total Bilirubin Direct Bilirubin 0.3 H AST ALT Alkaline Phosphatase Troponin I < 0.02 Total Protein Albumin Active Medications Generic Name Dose Route Start Last Admin Trade Name Freq PRN Reason Stop Dose Admin Atorvastatin Calcium 10 mg 06/10/18 22:00 06/10/18 22:04 Lipitor - PO 10 mg HS CONCHA Administration Enalapril Maleate 5 mg 06/10/18 20:15 06/13/18 09:40 Vasotec - PO 5 mg DAILY CONCHA Administration Enoxaparin Sodium 40 mg 06/11/18 10:00 06/13/18 09:40 Lovenox - SQ 40 mg DAILY CONCHA Administration Metronidazole 500 mg in 100 mls @ 100 mls/hr 06/11/18 12:30 06/13/18 10:56 Flagyl 500mg Premixed Ivpb - IVPB 100 mls/hr Q6H-IV CONCHA Administration Sodium Chloride 1,000 mls @ 150 mls/hr 06/11/18 12:43 06/13/18 09:47 Normal Saline - IV 150 mls/hr ASDIR CONCHA Administration Ibuprofen 400 mg 06/13/18 09:00 06/13/18 09:40 Caldolor Injection - IVPB 400 mg Q6H-IV CONHCA Administration Morphine Sulfate 2 mg 06/12/18 09:27 06/12/18 10:00 Morphine Sulfate IVPUSH 2 mg Q4H PRN Administration PAIN LEVEL 6-10 Ondansetron HCl 4 mg 06/12/18 10:13 06/12/18 10:31 Zofran Injection IVPUSH 4 mg Q6H PRN Administration NAUSEA AND/OR VOMITING IMAGING Chest Xray: No acute chest pathology Abdominal US: No evidence of cholelithaisis or acute pathology. ASSESSMENT/PLAN: Patient is a 52 year old female with history of hypertension, hyperlipidemia presents with complaint of right and left upper quadrant abdominal pain. Admitted for sepsis. Sepsis -Unclear etiology. May be due to pyelonephritis vs choledocolithiasis -WBC 11.6, afebrile at 98.3F -Blood cultures -Urine cultures preliminary growth at 24 hours grow gram negative lactose fermenting bacilli -Ibuprofen 400mg IVPB Q6H -Morphine 2mg IV push Q4H PRN for pain 6-10 -Surgical consult (Dr. Parson) appreciated: No acute or surgical abdomen. Constipation -Patient admits last bowel movement was last -2 glycerin suppositories -Miralax 17grams PO BID Hypokalemia -Potassium 3.3 today -Repleted with K-dur 20meq PO. -Will follow CMP Transaminitis -Improving. AST 36, ALT 55, Alk Phos 161, total bili 0,6 -Lipase 53 -GI consult (Dr. Barrios) appreciated: Will continue BRAT diet and oral hydration. HTN -Enalapril 5mmg PO QD HLD -Hold Simvastatin due to transaminitis FEN -IVNS at 150mL/hr -Follow CMP -BRAT diet, oral hydration as tolerated with water or herminio-andre Prophylaxis -Lovenox 40mg SQ QD Disposition: -Continue care in medical surgical floor. Visit type - Emergency Visit Emergency Visit: Yes ED Registration Date: 06/10/18 Care time: The patient presented to the Emergency Department on the above date and was hospitalized for further evaluation of their emergent condition. - New Patient This patient is new to me today: Yes Date on this admission: 06/13/18 - Critical Care Critical Care patient: No - Discharge Referral Referred to [facility] Med P.C.: No
[2018-06-13] MEDS ORDERED: POTASSIUM CHLORIDE TABS 20 MEQ TABLET.ER (FP) PO ONE (13:45)
--- NOTE | 2018-06-13 14:32 | EKG ---
Test Reason : Blood Pressure : / mmHG Vent. Rate : 075 BPM Atrial Rate : 075 BPM P-R Int : 104 ms QRS Dur : 082 ms QT Int : 380 ms P-R-T Axes : 005 012 -16 degrees QTc Int : 424 ms SINUS RHYTHM WITH SHORT DC OTHERWISE NORMAL ECG WHEN COMPARED WITH ECG OF 10-JUN-2018 23:10, NO SIGNIFICANT CHANGE WAS FOUND Confirmed by DINESH SANDERS MD ([id number]) on 06/13/2018 2:32:38 PM Referred By: Confirmed By:DINESH SANDERS MD
[2018-06-13] MEDS ORDERED: GLYCERIN 1 RECTAL SUPPOSITORY, ADULT RC SCH (15:00)
--- NOTE | 2018-06-13 18:23 | PN ---
Teaching Attending Note Name of Resident: Gautam Garrett ATTENDING PHYSICIAN STATEMENT I saw and evaluated the patient. I reviewed the resident's note and discussed the case with the resident. I agree with the resident's findings and plan as documented. SUBJECTIVE: Patient is feeling better, no further pain as per patient. OBJECTIVE: Vital Signs Temperature 98.1 F 06/13/18 18:17 Pulse Rate 78 06/13/18 18:17 Respiratory Rate 18 06/13/18 18:17 Blood Pressure 147/87 06/13/18 18:17 O2 Sat by Pulse Oximetry (%) 96 06/13/18 09:00 GENERAL: The patient is awake, alert, and fully oriented, in no Acute distress. HEAD: Normal with no signs of trauma. EYES: PERRL, extraocular movements intact, sclera anicteric, conjunctiva clear. ENT: Ears normal, oropharynx clear without exudates, moist mucous membranes. NECK: Trachea midline, full range of motion, supple. LUNGS: Breath sounds equal, clear to auscultation bilaterally, no wheezes, no crackles, no accessory muscle use. HEART: Regular rate and rhythm, S1, S2 without murmur, rub or gallop. ABDOMEN: Soft, No further abdominal pain . no rebound, no hepatosplenomegaly, no masses. EXTREMITIES: 2+ pulses, warm, well-perfused, no edema. NEUROLOGICAL: Cranial nerves II through XII grossly intact. Normal speech, gait not observed. PSYCH: Normal mood, normal affect. SKIN: Warm, dry, normal turgor, no rashes or lesions noted CBCD WBC 11.6 K/mm3 (4.0-10.0) H 06/13/18 06:20 RBC 4.05 M/mm3 (3.60-5.2) 06/13/18 06:20 Hgb 10.4 GM/dL (10.7-15.3) L 06/13/18 06:20 Hct 31.9 % (32.4-45.2) L 06/13/18 06:20 MCV 78.8 fl (80-96) L 06/13/18 06:20 MCHC 32.7 g/dl (32.0-36.0) 06/13/18 06:20 RDW 15.1 % (11.6-15.6) 09/17/18 06:20 Plt Count 207 K/MM3 (134-434) 06/13/18 06:20 MPV 8.8 fl (7.5-11.1) 06/13/18 06:20 CMP Sodium 143 mmol/L (136-145) 06/13/18 06:20 Potassium 3.3 mmol/L (3.5-5.1) L 06/13/18 06:20 Chloride 110 mmol/L (98-107) H 06/13/18 06:20 Carbon Dioxide 23 mmol/L (21-32) 06/13/18 06:20 Anion Gap 10 MMOL/L (8-16) 06/13/18 06:20 BUN 11 mg/dL (7-18) 06/13/18 06:20 Creatinine 0.7 mg/dL (0.55-1.3) 06/13/18 06:20 Creat Clearance w eGFR > 60 (>60) 06/13/18 06:20 Random Glucose 104 mg/dL (74-106) 06/13/18 06:20 Calcium 7.8 mg/dL (8.5-10.1) L 06/13/18 06:20 Total Bilirubin 0.6 mg/dL (0.2-1.0) 06/13/18 06:20 AST 36 U/L (15-37) 06/13/18 06:20 ALT 55 U/L (13-61) 06/13/18 06:20 Alkaline Phosphatase 161 U/L (45-117) H 06/13/18 06:20 Total Protein 5.3 g/dl (6.4-8.2) L 06/13/18 06:20 Albumin 2.0 g/dl (3.4-5.0) L 06/13/18 06:20 CARDIAC ENZYMES Troponin I < 0.02 ng/ml (0.00-0.05) 06/13/18 09:12 Current Medications Generic Name Dose Route Start Last Admin Trade Name Puja PRN Reason Stop Dose Admin Atorvastatin Calcium 10 mg 06/10/18 22:00 06/10/18 22:04 Lipitor - PO 10 mg HS CONCHA Administration Enalapril Maleate 5 mg 06/10/18 20:15 06/13/18 09:40 Vasotec - PO 5 mg DAILY CONCHA Administration Enoxaparin Sodium 40 mg 06/11/18 10:00 09/17/18 09:40 Lovenox - SQ 40 mg DAILY CONCHA Administration Glycerin 2 each 06/13/18 15:00 06/13/18 15:47 Glycerin Suppository Adult - RC Not Given DAILY CONCHA Metronidazole 500 mg in 100 mls @ 100 mls/hr 06/11/18 12:30 06/13/18 15:45 Flagyl 500mg Premixed Ivpb - IVPB 100 mls/hr Q6H-IV CONCHA Administration Sodium Chloride 1,000 mls @ 150 mls/hr 06/11/18 12:43 06/13/18 14:06 Normal Saline - IV Not Given ASDIR CONCHA Ibuprofen 400 mg 06/13/18 09:00 06/13/18 14:16 Caldolor Injection - IVPB 400 mg Q6H-IV CONCHA Administration Morphine Sulfate 2 mg 06/12/18 09:27 06/12/18 10:00 Morphine Sulfate IVPUSH 2 mg Q4H PRN Administration PAIN LEVEL 6-10 Ondansetron HCl 4 mg 06/12/18 10:13 06/12/18 10:31 Zofran Injection IVPUSH 4 mg Q6H PRN Administration NAUSEA AND/OR VOMITING Polyethylene Glycol 17 gm 06/13/18 22:00 Miralax (For Daily Use) - PO BID [facility] Home Medications Medication Instructions Recorded Enalapril Maleate 5 mg PO HS 06/10/18 Simvastatin [Zocor] 10 mg PO HS 06/10/18 Aspirin [ASA -] 81 mg PO DAILY 06/13/18 Diclofenac Potassium 50 mg PO BID PRN 06/13/18 Icosapent Ethyl [Vascepa] 1 gm PO BID 06/13/18 Nebivolol [Bystolic -] 5 mg PO DAILY 06/13/18 Nitroglycerin 0.4 mg SL PRN PRN 06/13/18 Simvastatin [Zocor -] 20 mg PO DAILY 06/13/18 ASSESSMENT AND PLAN: Patient is a 52 yo F with a PMHx of HTN, HLD, presented because of fever and RUQ and LUQ abdominal pain . # Sepsis due to possible cholecystitis/choledecolithiasis improved with UTI presentation continue with IV antibiotics to IV Flagyl/Levaquin, surgical consult appreciated GI consult appreciated lipase within normal limit. # ELevated LFTs trending down , will continue to monitor # Acute UTI Levaquin IV Dvt:lovenox advance directives - Full code
[2018-06-13] MEDS ORDERED: POLYETHYLENE GLYCOL 3350 119 GM BTL PO SCH (22:00)
[2018-06-14] MEDS: IBUPROFEN 800 MG/8 ML IJ IVPB SCH ×2 (03:52→11:06)
[2018-06-14] MEDS: SODIUM CHLORIDE 1,000 ML IV SCH (05:31)
[2018-06-14 07:45] LABS: HEMATOCRIT 30.6 % (32.4-45.2); HEMOGLOBIN 10.3 GM/dL (10.7-15.3); MCH 26.2 pg (25.7-33.7); MCHC 33.6 g/dl (32.0-36.0); MEAN CELL VOLUME 78.1 fl (80-96); MEAN PLT VOLUME 8.2 fl (7.5-11.1); PLATELET COUNT 223 K/MM3 (134-434); RBC 3.92 M/mm3 (3.60-5.2); RDW 14.8 % (11.6-15.6); WHITE BLOOD COUNT 9.1 K/mm3 (4.0-10.0)
--- NOTE | 2018-06-14 08:01 | PN ---
Teaching Attending Note Name of Resident: Gautam Garrett ATTENDING PHYSICIAN STATEMENT I saw and evaluated the patient. I reviewed the resident's note and discussed the case with the resident. I agree with the resident's findings and plan as documented. SUBJECTIVE: Patient is comfortable with no acute distress. wants to go home. OBJECTIVE: Vital Signs Temperature 98.7 F 06/14/18 06:00 Pulse Rate 75 06/14/18 06:00 Respiratory Rate 18 06/14/18 06:00 Blood Pressure 145/82 06/14/18 06:00 O2 Sat by Pulse Oximetry (%) 96 06/13/18 21:00 GENERAL: The patient is awake, alert, and fully oriented, in mild distress. HEAD: Normal with no signs of trauma. EYES: PERRL, extraocular movements intact, sclera anicteric, conjunctiva clear. ENT: Ears normal, oropharynx clear without exudates, moist mucous membranes. NECK: Trachea midline, full range of motion, supple. LUNGS: Breath sounds equal, clear to auscultation bilaterally, no wheezes, no crackles, no accessory muscle use. HEART: Regular rate and rhythm, S1, S2 without murmur, rub or gallop. ABDOMEN: Soft, NT, no rebound, no further tenderness. no rebound, no hepatosplenomegaly, no masses. EXTREMITIES: 2+ pulses, warm, well-perfused, no edema. NEUROLOGICAL: Cranial nerves II through XII grossly intact. Normal speech, gait not observed. PSYCH: Normal mood, normal affect. SKIN: Warm, dry, normal turgor, no rashes or lesions noted CBCD WBC 9.1 K/mm3 (4.0-10.0) 06/14/18 07:00 RBC 3.92 M/mm3 (3.60-5.2) 06/14/18 07:00 Hgb 10.3 GM/dL (10.7-15.3) L 06/14/18 07:00 Hct 30.6 % (32.4-45.2) L 06/14/18 07:00 MCV 78.1 fl (80-96) L 06/14/18 07:00 MCHC 33.6 g/dl (32.0-36.0) 06/14/18 07:00 RDW 14.8 % (11.6-15.6) 06/14/18 07:00 Plt Count 223 K/MM3 (134-434) 06/14/18 07:00 MPV 8.2 fl (7.5-11.1) 06/14/18 07:00 CMP Sodium 143 mmol/L (136-145) 06/13/18 06:20 Potassium 3.3 mmol/L (3.5-5.1) L 06/13/18 06:20 Chloride 110 mmol/L (98-107) H 06/13/18 06:20 Carbon Dioxide 23 mmol/L (21-32) 06/13/18 06:20 Anion Gap 10 MMOL/L (8-16) 06/13/18 06:20 BUN 11 mg/dL (7-18) 06/13/18 06:20 Creatinine 0.7 mg/dL (0.55-1.3) 06/13/18 06:20 Creat Clearance w eGFR > 60 (>60) 06/13/18 06:20 Random Glucose 104 mg/dL (74-106) 06/13/18 06:20 Calcium 7.8 mg/dL (8.5-10.1) L 06/13/18 06:20 Total Bilirubin 0.6 mg/dL (0.2-1.0) 06/13/18 06:20 AST 36 U/L (15-37) 06/13/18 06:20 ALT 55 U/L (13-61) 06/13/18 06:20 Alkaline Phosphatase 161 U/L (45-117) H 06/13/18 06:20 Total Protein 5.3 g/dl (6.4-8.2) L 06/13/18 06:20 Albumin 2.0 g/dl (3.4-5.0) L 06/13/18 06:20 CARDIAC ENZYMES Troponin I < 0.02 ng/ml (0.00-0.05) 06/13/18 09:12 Current Medications Generic Name Dose Route Start Last Admin Trade Name José Miguelq PRN Reason Stop Dose Admin Atorvastatin Calcium 10 mg 06/10/18 22:00 06/10/18 22:04 Lipitor - PO 10 mg HS CONCHA Administration Enalapril Maleate 5 mg 06/10/18 20:15 06/13/18 09:40 Vasotec - PO 5 mg DAILY CONCHA Administration Enoxaparin Sodium 40 mg 06/11/18 10:00 06/13/18 09:40 Lovenox - SQ 40 mg DAILY CONCHA Administration Glycerin 2 each 06/13/18 15:00 06/13/18 15:47 Glycerin Suppository Adult - RC Not Given DAILY [facility] Metronidazole 500 mg in 100 mls @ 100 mls/hr 06/11/18 12:30 06/14/18 03:10 Flagyl 500mg Premixed Ivpb - IVPB 100 mls/hr Q6H-IV CONCHA Administration Sodium Chloride 1,000 mls @ 150 mls/hr 06/11/18 12:43 06/14/18 05:31 Normal Saline - IV 150 mls/hr ASDIR CONCHA Administration Ibuprofen 400 mg 06/13/18 09:00 06/14/18 03:52 Caldolor Injection - IVPB 400 mg Q6H-IV CONCHA Administration Morphine Sulfate 2 mg 06/12/18 09:27 06/12/18 10:00 Morphine Sulfate IVPUSH 2 mg Q4H PRN Administration PAIN LEVEL 6-10 Ondansetron HCl 4 mg 06/12/18 10:13 06/12/18 10:31 Zofran Injection IVPUSH 4 mg Q6H PRN Administration NAUSEA AND/OR VOMITING Polyethylene Glycol 17 gm 06/13/18 22:00 06/13/18 23:15 Miralax (For Daily Use) - PO Not Given BID [facility] Home Medications Medication Instructions Recorded Enalapril Maleate 5 mg PO HS 06/10/18 Aspirin [ASA -] 81 mg PO DAILY 06/13/18 Diclofenac Potassium 50 mg PO BID PRN 06/13/18 Nebivolol [Bystolic -] 5 mg PO DAILY 06/13/18 Home Medications Medication Instructions Recorded Enalapril Maleate 5 mg PO HS 06/10/18 Aspirin [ASA -] 81 mg PO DAILY 06/13/18 Nebivolol [Bystolic -] 5 mg PO DAILY 06/13/18 Lactobacillus Acidophilus [Bacid -] 1 each PO DAILY #30 capsule 06/14/18 Levofloxacin [Levaquin] 500 mg PO DAILY #6 tablet 06/14/18 Simvastatin [Zocor -] 20 mg PO HS 06/14/18 metroNIDAZOLE [Flagyl -] 500 mg PO TID #36 tablet 06/14/18 ASSESSMENT AND PLAN: 52 yo F with a PMHx of HTN, HLD, presented because of fever and RUQ and LUQ abdominal pain . # Sepsis due to possible cholecystitis/choledecolithiasis/UTI continue with oral antibiotics Flagyl/Levaquin x 6 more days , follow with surgery GI consult follow up visit . Low fat diet. # ELevated LFTs trending down ,repeat levels in a week with her primary MD. # Acute UTI Levaquin IV follow with primary MG, GI and repeat labs in a week.
[2018-06-14 08:10] LABS: CHLORIDE 110 mmol/L (98-107); SODIUM 143 mmol/L (136-145)
[2018-06-14 08:20] LABS: ALBUMIN 1.9 g/dl (3.4-5.0); ALK PHOS 150 U/L (45-117); ANION GAP 7 MMOL/L (8-16); BILIRUBIN,TOTAL 0.5 mg/dL (0.2-1); BLOOD UREA NITROGEN 5 mg/dL (7-18); CALCIUM 7.3 mg/dL (8.5-10.1); CO2 26 mmol/L (21-32); CREATININE 0.6 mg/dL (0.55-1.3); GLUCOSE,RANDOM 123 mg/dL (74-106); MAGNESIUM 1.8 mg/dL (1.8-2.4); PHOSPHOROUS 2.2 mg/dL (2.5-4.9); SGOT/AST 27 U/L (15-37); SGPT/ALT 39 U/L (13-61); TOT PROT 4.9 g/dl (6.4-8.2)
[2018-06-14 08:48] VITALS: TEMP 98.2
[2018-06-14] MEDS ORDERED: PT OWN MED DRAWER 7, Y5N ONE (08:49)
[2018-06-14] MEDS ORDERED: POTASSIUM CHLORIDE TABS 20 MEQ TABLET.ER (FP) PO ONE (09:11)
[2018-06-14] MEDS ORDERED: KCL 10 MEQ IVPB 10 MEQ/100 ML INFUS.BAG IVPB SCH (09:15)
[2018-06-14] MEDS ORDERED: NAPH,MB-DB/K PH,MBDB POWDER PACKET PO ONE (09:15)
[2018-06-14] MEDS: ENALAPRIL MALEATE 5 MG TABLET (FP) PO SCH (09:21)
[2018-06-14] MEDS: ENOXAPARIN NA (PORCINE) 40 MG/0.4 ML DISP.SYRIN SQ SCH (09:21)
--- NOTE | 2018-06-14 11:23 | DS ---
Physical Exam: SUBJECTIVE: Patient seen and examined at bedside. Admits two semi-solid bowel movements yesterday after the suppository. No melena, no hematochezia. Able to tolerate BRAT diet. Denies abdominal pain, nausea, vomiting, diarrhea. Denies headaches, dizziness, fevers, chills, shortness of breath, cough, chest pain, palpitations, dysuria, hematuria. OBJECTIVE: Vital Signs Period Temp Pulse Resp BP Sys/Ryan Pulse Ox Last 24 Hr 98.1 F-98.7 F 73-84 18-18 139-151/75-88 96 PHYSICAL EXAM GENERAL: The patient is awake, alert, and fully oriented, in no acute distress. HEAD: Normal with no signs of trauma. EYES: PERRLA, extraocular movements intact, sclera anicteric, conjunctiva clear. ENT: Oropharynx clear without exudates, moist mucous membranes. NECK: Trachea midline, full range of motion, supple without lymphadenopathy LUNGS: Breath sounds equal, clear to auscultation bilaterally, no wheezes, no crackles, no accessory muscle use. HEART: Regular rate and rhythm, S1, S2 without murmur, rub or gallop. ABDOMEN: Soft, nontender to light and deep palpation, nondistended, normoactive bowel sounds X4 quadrants, no guarding, no rebound, no hepatosplenomegaly. EXTREMITIES: 2+ pulses radial and dorsalis pedis B/L. Warm, well-perfused. No edema B/L lower extremities. NEUROLOGICAL: Cranial nerves II through XII grossly intact. Normal speech. No gross focal deficits. PSYCH: Appropriate mood and affect upon my encounter today. SKIN: Warm, dry. No rashes or lesions noted LABS Laboratory Results - last 24 hr 06/14/18 06/14/18 07:00 07:00 WBC 9.1 RBC 3.92 Hgb 10.3 L Hct 30.6 L MCV 78.1 L MCH 26.2 MCHC 33.6 RDW 14.8 Plt Count 223 MPV 8.2 Sodium 143 Potassium 3.0 L Chloride 110 H Carbon Dioxide 26 Anion Gap 7 L BUN 5 L Creatinine 0.6 Creat Clearance w eGFR > 60 Random Glucose 123 H Calcium 7.3 L Phosphorus 2.2 L Magnesium 1.8 Total Bilirubin 0.5 AST 27 ALT 39 Alkaline Phosphatase 150 H Total Protein 4.9 L Albumin 1.9 L HOSPITAL COURSE: Date of Admission:06/10/18 Date of Discharge: 06/14/18 Patient is a 52 year old female with history of hypertension, hyperlipidemia presents with complaint of right and left upper quadrant abdominal pain, suprapubic pain, dysuria. Admitted for Sepsis due to pyelonephritis vs choledocholithiasis. Upon admission patient afebrile, WBC 17.4, AST 93, ALT 91, Alkaline phosphatase 202, total bilirubin 1.1. UA showed light yellow urine 2+ blood, 3+ leukocyte esterase, 138 WBC. Chest Xray showed no acute chest pathology. Abdominal US showed no evidence of cholelithaisis or acute pathology. Patent was started on Levaquin and Flagyl. Started on IV fluids. Transaminitis, and white count gradually resolved. Surgical consult discussed no acute or surgical abdomen. GI consult discussed cholestasis likely reactive to urosepsis. Patient was advanced to BRAT diet which she tolerated well. Constipation was managed with two glycerin suppositories, and Miralax. During her hospital stay complained of chest pain. Troponins were negative at 0.02 X2. EKG showed no acute changes from EKG at admission. Patient was discharged on PO Flagyl, Levaquin and Bacid, to follow up with GI, and primary care physician within one week. Minutes to complete discharge: 35 Discharge Summary Reason For Visit: PYELONEPHRITIS Current Active Problems Cholestasis (Acute) Pyelonephritis (Acute) Sepsis (Acute) Transaminitis (Acute) Condition: Improved - Instructions Diet, Activity, Other Instructions: You were admitted for fever and abdominal pain, and symptoms concerning for a urinary tract infection. You were treated with intravenous antibiotics for your infection. You will continue taking your home medications as directed. We are temporarily stopping your cholesterol medication (Lipitor), because your liver proteins were elevated. You will need to follow up with your primary care physician within one week, to discuss reinstating the medication. We are sending you home on oral antibiotics- Falgyl 500mg thrice a day and levaquin 500mg daily Get repeat Liver function tests with your Primary care doctor and repeat abdominal ultrasound in 2 weeks with your primary care doctor It is important that you follow up with your primary care physician within one week of discharge. It is important that you follow up with the [facility] within one week of discharge. If you have new or worsening flank pain, [facility] Referrals: Tejinder Barrios MD [Staff Physician] - 1 Week Disposition: HOME - Home Medications Comprehensive Discharge Medication List: Ambulatory Orders Enalapril Maleate 5 mg PO HS 06/10/18 Aspirin [ASA -] 81 mg PO DAILY 06/13/18 Nebivolol [Bystolic -] 5 mg PO DAILY 06/13/18 Levofloxacin [Levaquin] 500 mg PO DAILY #6 tablet 06/14/18 metroNIDAZOLE [Flagyl -] 500 mg PO TID #36 tablet 06/14/18 This patient is new to me today: No Emergency Visit: Yes ED Registration Date: 06/10/18 Care time: The patient presented to the Emergency Department on the above date and was hospitalized for further evaluation of their emergent condition. Critical Care patient: No - Discharge Referral Referred to [facility] Med [facility] No
[2018-06-14 12:04] VITALS: BP 140/80; PULSE 80
[2018-06-14] MEDS ORDERED: metroNIDAZOLE 250 MG TABLET PO SCH (14:00)
[2018-06-15] MEDS ORDERED: levoFLOXacin 750 MG TABLET PO SCH (10:00)
== END 2018-06-14 12:09 | disposition home or self-care (01) | DRG 720 ==
LOC: JER 16:11 → JERBED 19:16 → J5S 06-11 02:33
PROVIDERS: ADMIT Internal Medicine; ATTEND Internal Medicine
DX: A41.9 Sepsis, unspecified organism (principal); K83.1 Obstruction of bile duct; N10 Acute pyelonephritis; E87.6 Hypokalemia; E78.5 Hyperlipidemia, unspecified; I10 Essential (primary) hypertension; R74.0 Nonspecific elevation of levels of transaminase and lactic acid dehydrogenase [LDH]; K59.00 Constipation, unspecified
CPT/HCPCS: 36415; 71046-TC-FY; 76705-TC; 80053; 81003; 81015; 82248; 82803; 83605; 83690; 83735; 84100; 84484; 85025; 85027; 87040; 87086; 87186; 87804; 93005; 93010; 99284-25; J7030

== ENCOUNTER 2018-07-18 10:25 | Emergency (ER) | payer OTHER ==
[2018-07-18 10:32] VITALS: BP 151/78; PULSE 58; TEMP 97.8; BMI 25.8
[2018-07-18 11:21] LABS: HCG,QUALITATIVE URINE Negative
[2018-07-18 11:22] LABS: URINE APPEARANCE CLOUDY; URINE BILIRUBIN NEGATIVE (<2.0 mg/dL); URINE COLOR LTYELLOW; URINE GLUCOSE (UA) NEGATIVE (NEGATIVE); URINE KETONE NEGATIVE (NEGATIVE); URINE LEUK ESTERASE 3+ (NEGATIVE); URINE NITRITE NEGATIVE (NEGATIVE); URINE PROTEIN 1+ (NEGATIVE); URINE UROBILINOGEN NEGATIVE mg/dL (0.2-1.0)
--- NOTE | 2018-07-18 11:43 | PDOC ---
History of Present Illness - General Chief Complaint: Urinary Problem Stated Complaint: URINARY PROBLEM Time Seen by Provider: 07/18/18 11:00 History Source: Patient Exam Limitations: No Limitations - History of Present Illness Initial Comments: 07/18/18 11:46 Patient is a 52-year-old female with no past medical history, admitted last month for pyelonephritis, who presents to the emergency department today for dysuria, suprapubic pain. Patient states her symptoms started on Wednesday. She states she is going to the bathroom more frequently and that it is painful. Denies fevers, chills, nausea, vomiting, flank pain, diarrhea and constipation. Past History - Travel Traveled outside of the country in the last 30 days: No Close contact w/someone who was outside of country & ill: No - Past Medical History Allergies/Adverse Reactions: Allergies Allergy/AdvReac Type Severity Reaction Status Date / Time No Known Allergies Allergy Verified 07/18/18 10:28 Home Medications: Ambulatory Orders Enalapril Maleate 5 mg PO HS 06/10/18 Aspirin [ASA -] 81 mg PO DAILY 06/13/18 Nebivolol [Bystolic -] 5 mg PO DAILY 06/13/18 Lactobacillus Acidophilus [Bacid -] 1 each PO DAILY #30 capsule 06/14/18 Simvastatin [Zocor -] 20 mg PO HS 06/14/18 Cephalexin Monohydrate [Keflex -] 500 mg PO BID #14 capsule 07/18/18 Phenazopyridine HCl [Pyridium -] 100 mg PO TID #15 tablet 07/18/18 Anemia: No Asthma: No Cancer: No Cardiac Disorders: No CVA: No COPD: No CHF: No Dementia: No Diabetes: No GI Disorders: No Disorders: No HTN: Yes Hypercholesterolemia: Yes Liver Disease: No Seizures: No Thyroid Disease: No Other medical history: hx pyelonephritis - Surgical History Abdominal Surgery: No Appendectomy: No Cardiac Surgery: No Cholecystectomy: No Lung Surgery: No Neurologic Surgery: No Orthopedic Surgery: No - Suicide/Smoking/Psychosocial Hx Smoking History: Never smoked Hx Alcohol Use: No Drug/Substance Use Hx: No Substance Use Type: None Hx Substance Use Treatment: No Review of Systems - Review of Systems Able to Perform ROS?: Yes Comments:: 07/18/18 11:46 CONSTITUTIONAL: Absent: fever, chills, diaphoresis, generalized weakness, malaise, loss of appetite HEENT: Absent: rhinorrhea, nasal congestion, throat pain, throat swelling, difficulty swallowing, mouth swelling, ear pain, eye pain, visual Changes CARDIOVASCULAR: Absent: chest pain, loss of consciousness, palpitations, irregular heart rate, peripheral edema RESPIRATORY: Absent: cough, shortness of breath, dyspnea with exertion, orthopnea, wheezing, stridor, hemoptysis GASTROINTESTINAL: Absent: abdominal pain, abdominal distension, nausea, vomiting, diarrhea, constipation, melena, hematochezia GENITOURINARY: Present: dysuria, frequency, urgency Absent: hesitancy, hematuria, flank pain, genital pain MUSCULOSKELETAL: Absent: myalgia, arthralgia, joint swelling SKIN: Absent: rash, itching, pallor NEUROLOGIC: Absent: headache, focal weakness or paresthesias, dizziness, unsteady gait, seizure, mental status changes, bladder or bowel incontinence PSYCHIATRIC: Absent: anxiety, depression, suicidal or homicidal ideation, hallucinations. Is the patient limited Turkish proficient: No *Physical Exam - Vital Signs Last Vital Signs Temp Pulse Resp BP Pulse Ox 97.8 F 58 L 16 151/78 99 07/18/18 10:30 07/18/18 10:30 07/18/18 10:30 07/18/18 10:30 07/18/18 10:30 - Physical Exam Comments: 07/18/18 11:47 GENERAL: Well developed, well nourished. Awake and alert. No acute distress. NECK: Supple. Full ROM. No JVD. Carotid pulses 2+ and symmetric, without bruits. No thyromegaly. No lymphadenopathy. ABDOMINAL: Suprapubic discomfort. Soft. Non-tender. Non-distended. No rebound or guarding. No organomegaly. Normoactive bowel sounds. MUSCULOSKELETAL Normal range of motion at all joints. No bony deformities or tenderness. No CVA tenderness. SKIN: Warm and dry. Normal capillary refill. No rashes. No jaundice. NEUROLOGICAL: Alert, awake, appropriate. Cranial nerves 2-12 intact. No deficits to light touch and temperature in face, upper extremities and lower extremities. No motor deficits in the in face, upper extremities and lower extremities. Normoreflexic in the upper and lower extremities. Normal speech. Toes are down- going bilaterally. Gait is normal without ataxia. ED Treatment Course - ADDITIONAL ORDERS Additional order review: Laboratory Results 07/18/18 10:32 Urine Color Ltyellow Urine Appearance Cloudy Urine pH 7.0 Ur Specific [place] 1.008 L Urine Protein 1+ H Urine Glucose (UA) Negative Urine Ketones Negative Urine Blood 3+ H Urine Nitrite Negative Urine Bilirubin Negative Urine Urobilinogen Negative Ur Leukocyte Esterase 3+ H Urine HCG, Qual Negative Medical Decision Making - Medical Decision Making 07/18/18 11:48 Patient is a 52-year-old female with no past medical history, admitted last month for pyelonephritis, who presents to the emergency department today for dysuria, suprapubic pain x2 days -Urinalysis with 3+ leukocytes and 3+ blood. -Clinically a UTI. No flank pain, nausea, fevers to suggest pyelonephritis. -We'll treat with Keflex at this time. Prior sensitivity from May shows her last UTI was sensitive to Keflex. -Pyridium given for symptomatic treatment. -Discharge home with PCP follow-up. -I discussed the physical exam findings, ancillary test results and final diagnoses with the patient. I answered all of the patient's questions. The patient was satisfied with the care received and felt comfortable with the discharge plan and treatment plan. The Patient agrees to follow up with the primary care physician/specialist within 24-72 hours. Return precautions were given. *DC/Admit/Observation/Transfer Diagnosis at time of Disposition: UTI (urinary tract infection) Qualifiers: Urinary tract infection type: acute cystitis Hematuria presence: with hematuria Qualified Code(s): N30.01 - Acute cystitis with hematuria - Discharge Dispostion Disposition: HOME Condition at time of disposition: Stable Decision to Admit order: No - Referrals Referrals: Rashid Vargas MD [Staff Physician] - - Patient Instructions Printed Discharge Instructions: DI for Urinary Tract Infection (UTI) Additional Instructions: You have a urinary tract infection. This caused by bacteria. Please drink plenty of fluids. Take your antibiotics as prescribed (keflex). Finish the entire dose even if you feel better. You may take Tylenol or Motrin as needed for pain. follow the dosing instructions on the bottle Take the Pyridium three times a day with food to help with your painful urination for the next three days. Please follow up with your primary care doctor this week. Return to the emergency department if you have fevers, chills, nausea, vomiting , back pain, or have any changes in your symptoms. Usted tiene lobo infeccin del tracto urinario. [place] es causado por bacterias. Por favor, nora muchos lquidos. [place] mitch antibiticos segn lo prescrito (keflex). Termine la dosis completa incluso si se siente mejor. Puede [place] Tylenol o Motrin segn sea necesario para el dolor. siga las instrucciones de dosificacin en la botella [place] el Pyridium jani veces al da con alimentos para ayudarlo con prado miccin dolorosa darrel los prximos jani napoles. Por favor marci un seguimiento con prado mdico de atencin primaria esta semana. Regrese al departamento de emergencias si tiene fiebre, escalofros, nuseas, vmitos, dolor de espalda o si tiene algn cambio en mitch sntomas. - Post Discharge Activity Forms/Work/School Notes: Back to Work
[2018-07-18 11:57] LABS: EPI CELLS RARE /HPF (FEW); URINE HYALINE CAST 4 /lpf
== END 2018-07-18 12:27 | disposition home or self-care (01) ==
LOC: JERFT 10:25
DX: N30.01 Acute cystitis with hematuria (principal); I10 Essential (primary) hypertension; E78.00 Pure hypercholesterolemia, unspecified; Z87.448 Personal history of other diseases of urinary system
CPT/HCPCS: 81003; 81015; 84703; 87086; 99281-25

== ENCOUNTER 2018-11-27 21:34 | Emergency (ER) | payer OTHER ==
[2018-11-27 21:38] VITALS: BP 167/85; PULSE 77; TEMP 98.5; BMI 22.8
--- NOTE | 2018-11-27 22:05 | PDOC ---
History of Present Illness - General Chief Complaint: Urinary Problem Stated Complaint: UTI Time Seen by Provider: 11/27/18 21:45 - History of Present Illness Initial Comments: 11/27/18 22:04 53-year-old female without comorbidities She states she does not take any home medications. Complains of dysuria with chills no fever 3 days Past History - Past Medical History Allergies/Adverse Reactions: Allergies Allergy/AdvReac Type Severity Reaction Status Date / Time No Known Allergies Allergy Verified 11/27/18 21:38 Home Medications: Ambulatory Orders Enalapril Maleate 5 mg PO HS 06/10/18 Aspirin [ASA -] 81 mg PO DAILY 06/13/18 Nitrofurantoin Monohyd/M-Cryst [Macrobid -] 100 mg PO BID #14 capsule 11/27/18 Anemia: No Asthma: No Cancer: No Cardiac Disorders: No CVA: No COPD: No CHF: No Dementia: No Diabetes: No GI Disorders: No Disorders: No HTN: Yes Hypercholesterolemia: Yes Liver Disease: No Seizures: No Thyroid Disease: No - Surgical History Abdominal Surgery: No Appendectomy: No Cardiac Surgery: No Cholecystectomy: No Lung Surgery: No Neurologic Surgery: No Orthopedic Surgery: No - Suicide/Smoking/Psychosocial Hx Smoking History: Never smoked Hx Alcohol Use: No Drug/Substance Use Hx: No Substance Use Type: None Hx Substance Use Treatment: No Review of Systems - Review of Systems Constitutional: No: Chills, Fever, Malaise, Night Sweats : Yes: Dysuria *Physical Exam - Vital Signs Last Vital Signs Temp Pulse Resp BP Pulse Ox 98.5 F 77 18 167/85 99 11/27/18 21:36 11/27/18 21:36 11/27/18 21:36 11/27/18 21:36 11/27/18 21:36 - Physical Exam Comments: 11/27/18 22:05 HEAD: NC/AT EYES: Conjuntiva clear MS: Full ROM in all joints without edema NEUROLOGIC: No gross sensory or motor deficits, NVID SKIN: Normal color and temperature no lesions or rashes Moderate Sedation - Procedure Monitoring Vital Signs: Procedure Monitoring Vital Signs Temperature 98.5 F 11/27/18 21:36 Pulse Rate 77 11/27/18 21:36 Respiratory Rate 18 11/27/18 21:36 Blood Pressure 167/85 11/27/18 21:36 O2 Sat by Pulse Oximetry (%) 99 11/27/18 21:36 *DC/Admit/Observation/Transfer Diagnosis at time of Disposition: UTI (urinary tract infection) - Discharge Dispostion Disposition: HOME Condition at time of disposition: Stable Decision to Admit order: No - Prescriptions Prescriptions: Nitrofurantoin Monohyd/M-Cryst [Macrobid -] 100 mg PO BID #14 capsule - Referrals - Patient Instructions Printed Discharge Instructions: Urinary Tract Infection Additional Instructions: Return to the emergency room for worsening symptoms and follow-up with your primary care doctor in 1-2 days for further evaluation and treatment options. Please take the medication as directed and finish the entire course. - Post Discharge Activity
[2018-11-27 22:12] LABS: URINE APPEARANCE SLCLOUDY; URINE BILIRUBIN NEGATIVE (<2.0 mg/dL); URINE COLOR STRAW; URINE GLUCOSE (UA) NEGATIVE (NEGATIVE); URINE KETONE NEGATIVE (NEGATIVE); URINE LEUK ESTERASE 3+ (NEGATIVE); URINE NITRITE NEGATIVE (NEGATIVE); URINE PROTEIN NEGATIVE (NEGATIVE); URINE UROBILINOGEN NEGATIVE mg/dL (0.2-1.0)
[2018-11-27 22:49] LABS: EPI CELLS RARE /HPF (FEW); URINE BACTERIA RARE /hpf (NONE SEEN); URINE MUCUS RARE
== END 2018-11-27 22:57 | disposition home or self-care (01) ==
LOC: JERFT 21:34
DX: N39.0 Urinary tract infection, site not specified (principal); I10 Essential (primary) hypertension; E78.00 Pure hypercholesterolemia, unspecified
CPT/HCPCS: 81003; 81015; 87086; 99281-25

== ENCOUNTER → 2018-11-27 | Emergency (ER) | payer OTHER | LOC: JER 22:10 ==